=== PATIENT | male | born 1945 | race Caucasian/White ===

== ENCOUNTER → 2017-02-09 | Outpatient (CLI) | payer MEDICARE, OTHER ==
[~2017-02-09] MED LIST: AMIT50TA3; ASP81CT PO; ATOR40TA70 PO; CALC625T8 PO; CITA20TA7 PO; DCS100C PO; DULO60CA6; EZET10TA5 PO; FURO40TA4 PO; HYDR28CR10 TP; KETO200T; LISI-552 PO; METO5TAB2; METO5TAB79 PO; MILN50TA PO; MORP15TA4 PO; MORP30CA15 PO; MORP60TA52 PO; NAPR-243; NAPR500T72; NAPRO; NEBI5TAB8 PO; OXYB15TA PO; POTA10TA6 PO; POTASSIUM CHLORIDE; PRM25T; PRM25T PO; SIMV80TA3 PO; SNN187T PO; TRAZ-28 PO; WESTCORT; WHEA1POW PO
--- NOTE | 2017-02-09 13:56 | Diagnostic Imaging Report ---
INDICATION: Back pain. COMPARISON: Two-view chest x-ray of 07/13/2012. FINDINGS: The thoracic vertebral body statures are stable and are aligned within normal limits. No acute appearing endplate irregularity. There are poor inspiratory volumes and basilar atelectasis with suggestion of at least mild enlargement of the cardiac silhouette. IMPRESSION: No acute thoracic spinal abnormality is radiographically apparent. Dictated by: Dictated on workstation # [id number]
--- NOTE | 2017-02-09 14:03 | Diagnostic Imaging Report ---
INDICATION: Back pain, strain. COMPARISON: 02/10/2016. FINDINGS: The upper limits heart size is a stable finding. There is trace scarring in the lung bases, chronic. No evidence for pneumonia. No failure pattern, effusion, or pneumothorax. No gross overdistention of the vascularity. No free air beneath the diaphragms. No chest wall fracture deformity. IMPRESSION: Stable chronic findings. No acute feature or change from the prior exam. Dictated by: Dictated on workstation # [id number]
== END ==
LOC: RAD 11:40
DX: S23.3XXD Sprain of ligaments of thoracic spine, subsequent encounter (principal)
CPT/HCPCS: 71020; 72072

== ENCOUNTER → 2017-02-15 | Outpatient (CLI) | payer MEDICARE, OTHER ==
[~2017-02-15] MED LIST changes: +CATHETER FLUSH 10 ML SYR IV PRN; +IOHEXOL 350 MG/ML 100 ML (OMNIPAQUE 350) VIAL IV ONE; +NS 100 ML (IVPB) BAG IV ONE
--- NOTE | 2017-02-15 12:44 | Diagnostic Imaging Report ---
PROCEDURE: CT abdomen and pelvis with contrast. TECHNIQUE: Multiple contiguous axial images were obtained through the abdomen and pelvis after administration of intravenous contrast. INDICATION: Low back pain, bladder pain. COMPARISON: The previous CT abdomen/pelvis exam performed on 01/23/2012 noted that the gallbladder was distended and that there is a 1 cm gallstone within the neck of the gallbladder. FINDINGS: In the interval since the previous exam, the patient has undergone a cholecystectomy. The liver is homogeneous and not enlarged. There are a few calcifications within the spleen. 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 These were also present on the prior exam. The pancreas, adrenals, kidneys, aorta and inferior vena cava show no sign of an acute abnormality. The stomach is not well-distended and consequently difficult to assess. The appendix was visualized and is not abnormally thickened. There is no pelvic mass or free fluid collection noted. The prostate gland and urinary bladder are grossly unremarkable. Incidental note is made of a penile implant. There are extensive calcifications in the soft tissues posterior to each gluteus neno muscle. Most likely these are related to injection granulomas. The bone windows show no sign of a fracture or of a destructive lesion. The lungs are generally clear. IMPRESSION: In the interval since the prior study, the patient has undergone a cholecystectomy. The overall appearance of the abdomen and pelvis has not changed significantly otherwise. There is no acute abnormality identified. Dictated by: Dictated on workstation # [id number]
== END ==
LOC: RAD 11:42
DX: R10.9 Unspecified abdominal pain (principal)
CPT/HCPCS: 74177

== ENCOUNTER → 2017-08-02 | Outpatient (CLI) | payer MEDICARE, OTHER ==
[~2017-08-02] VITALS: Ht 170.2 cm; Wt 95.3 kg
[~2017-08-02] MED LIST changes: -IOHEXOL 350 MG/ML 100 ML (OMNIPAQUE 350) VIAL IV ONE; -NS 100 ML (IVPB) BAG IV ONE; +REGADENOSON 0.4 MG/5 ML SYR (LEXISCAN) IV ONE
[2017-08-02 09:33] VITALS: BP 137/89
[2017-08-02 09:35] VITALS: BP 147/86
[2017-08-02 09:37] VITALS: BP 165/101
--- NOTE | 2017-08-03 14:30 | STRESS TEST ---
DATE OF SERVICE: 08/02/2017 PROCEDURE: Resting and post-regadenoson technetium-99m tetrofosmin SPECT CT imaging. ORDERING PHYSICIAN: Rony Juarez APRN PRIMARY PHYSICIAN: Dr. Colunga. CLINICAL DIAGNOSIS: Chest pain. Baseline images were carried out after injection of 10.39 mCi technetium-99m tetrofosmin. This was followed by 0.4 mg regadenoson and 29.4 mCi technetium-99m Tetrofosmin for stress imaging. The electrocardiogram showed sinus rhythm at baseline and did not change significantly with the regadenoson infusion. The regadenoson infusion induced nausea and dry heaving, which resolved in a few minutes. Review of images at rest and following stress does not indicate significant perfusion defects consistent with any significant myocardial ischemia or infarction. Gated images show normal global left ventricular systolic function with normal regional wall motion. Left ventricular ejection fraction is calculated to be 79%. Left ventricular end-diastolic volume is 57 mL. TID is absent (1.1). CONCLUSIONS: 1. No evidence of any significant myocardial ischemia or infarction on this study. 2. Normal regional wall motion. 3. Normal global left ventricular systolic function with a calculated ejection fraction of 79%. Job ID: [id number] DocumentID: [id number] Dictated Date: 08/02/2017 15:55:30 [employer] Date: 08/03/2017 08:07:30 Dictated By: DOT PEREZ MD, MA, FACP, FACC,
== END ==
LOC: CARD 08:18
PROVIDERS: ATTEND Nurse Practitioner Family
DX: R07.89 Other chest pain (principal)
CPT/HCPCS: 78452; 93017

== ENCOUNTER → 2017-12-01 | Outpatient (CLI) | payer MEDICARE, OTHER ==
[~2017-12-01] MED LIST changes: -CATHETER FLUSH 10 ML SYR IV PRN; -REGADENOSON 0.4 MG/5 ML SYR (LEXISCAN) IV ONE
--- NOTE | 2017-12-01 09:17 | Diagnostic Imaging Report ---
EXAMINATION: DEXA study. INDICATION: Age-related osteoporosis FINDINGS: Bone mineral density of the lumbar spine, L2-L4 is 1.171 g/cm2 with a T-score of -0.6. This is in the NORMAL range. Bone mineral density of the left femur is 0.831 g/cm2 with a T-score of -1.9. This is in the OSTEOPENIA range. Bone mineral density of the right femur is 0.866 g/cm2 with a T-score of -1.6. This is in the OSTEOPENIA range. Total mean density of the hips is 0.849 g/cm2 with a T-score of -1.8. IMPRESSION: This scan is considered OSTEOPENIC according to the World Health Organization guidelines. Dictated by: Dictated on workstation # [id number]
== END ==
LOC: RAD 08:17
PROVIDERS: ATTEND Nurse Practitioner Family
DX: M85.88 Other specified disorders of bone density and structure, other site (principal)
CPT/HCPCS: 77080

== ENCOUNTER 2018-09-21 09:19 | Outpatient (CLI) | payer MEDICARE, OTHER ==
[~2018-09-21] VITALS: Ht 170.2 cm; Wt 94.3 kg
[~2018-09-21 09:19] MED LIST changes: -CITA20TA7 PO; +CITA20TA9 PO; +HYDR-3820 PO; +MORP100T37 PO; +PROM50TA3 PO; +PROP20TA5 PO; +ROSU20TA31 PO; +TIZA4TAB3 PO; +TRAZ-189 PO; -TRAZ-28 PO
[2018-09-21] MEDS ORDERED: ASPI-999 PO (15:11)
[2018-09-21] MEDS ORDERED: FURO40TA4 PO (15:11)
== END 2018-09-21 15:15 | disposition home or self-care (01) ==
LOC: PREOP 09:19
PROVIDERS: ATTEND Surgery
DX: Z01.818 Encounter for other preprocedural examination (principal)

== ENCOUNTER 2018-09-27 09:23 | Day surgery (SDC) | payer MEDICARE, OTHER ==
[~2018-09-27] VITALS: Ht 170.2 cm; Wt 94.3 kg
[~2018-09-27 09:23] MED LIST changes: +ASPI-999 PO
[2018-09-27] MEDS ORDERED: NS IV 500 ML 500 ML IV PRN (09:55)
[2018-09-27] MEDS ORDERED: HURRICAINE EXT TUBE (BENZOCAINE) XX PRN (10:00)
[2018-09-27] MEDS ORDERED: MIDAZOLAM 2 MG/2 ML (VERSED) VIAL IVP ONE (10:00)
[2018-09-27] MEDS ORDERED: NS IV 500 ML 500 ML ONE ×2 (10:00→13:18)
[2018-09-27] MEDS ORDERED: fentaNYL INJECTION 100 MCG/2 ML AMP IVP ONE (10:00)
[2018-09-27 10:30] VITALS: BP 161/72
[2018-09-27] MEDS ORDERED: LIDOCAINE PF 1% 5 ML (XYLOCAINE) AMP ONE (10:46)
[2018-09-27] MEDS ORDERED: MIDAZOLAM 2 MG/2 ML (VERSED) VIAL ONE ×6 (11:25→13:19)
[2018-09-27] MEDS ORDERED: LIDOCAINE JELLY 2% 6 ML SYRINGE ONE (11:25)
[2018-09-27] MEDS ORDERED: fentaNYL INJECTION 100 MCG/2 ML AMP ONE (11:25)
[2018-09-27] MEDS ORDERED: HURRICAINE EXT TUBE (BENZOCAINE) ONE (11:26)
--- OUTSIDE RECORDS SUMMARY | 2018-09-27 11:43 | XMS REPORT | Continuity of Care Document ---
Author Author [facility] Organization [facility] Address Unknown Phone Unavailable Allergies Active Description Code Type Severity Reaction Onset Reported/Identified Relationship to Patient Clinical Status Yes ketorolac [id number] Drug Allergy Mild N/A 09/21/2018 Yes minocycline [id number] Drug Allergy Unknown N/A 09/21/2018 Medications There is no data. Problems Date Dx Coded Attending Type Code Diagnosis Diagnosed By 11/03/2010 Ot 272.4 11/03/2010 Ot 276.8 11/03/2010 Ot 311 11/03/2010 Ot 356.9 11/03/2010 Ot 401.9 11/03/2010 Ot 496 11/03/2010 Ot 530.81 11/03/2010 Ot 564.89 11/03/2010 Ot 600.00 11/03/2010 Ot 715.90 11/03/2010 Ot 787.3 11/03/2010 Ot E937.9 01/26/2012 Ot 272.4 HYPERLIPIDEMIA NEC/NOS 01/26/2012 Ot 401.9 HYPERTENSION NOS 01/26/2012 Ot 496 CHR AIRWAY OBSTRUCT NEC 01/26/2012 Ot 530.81 ESOPHAGEAL REFLUX 01/26/2012 Ot 574.20 CHOLELITHIASIS NOS 01/26/2012 Ot 722.93 DISC DIS NEC /NOS-LUMBAR 01/26/2012 Ot 782.3 EDEMA 01/26/2012 Ot V15.82 HISTORY OF TOBACCO USE 04/29/2015 Ot 564.00 04/29/2015 Ot 789.00 04/29/2015 Ot 786.50 04/29/2015 Ot V58.69 04/29/2015 Ot 433.30 04/29/2015 Ot 433.10 04/29/2015 Ot 433.30 04/29/2015 Ot 786.05 04/29/2015 Ot 786.50 04/29/2015 RON DAY (STRATTON) Ot 436 04/29/2015 RON DAY ([place]) Ot 447.1 04/29/2015 XANDER LEONARDO, DANAE Barth Ot 786.05 05/12/2015 XANDER LEONARDO, DANAE Barth Ot 786.05 06/12/2015 MOHAMUD MCCULLOUGH SALVATIONIST Ot 786.50 02/10/2016 Ot 564.00 02/10/2016 Ot 789.00 02/10/2016 Ot 786.50 02/10/2016 Ot V58.69 02/10/2016 Ot 433.30 02/10/2016 Ot 433.10 02/10/2016 Ot 433.30 02/10/2016 Ot 786.05 02/10/2016 Ot 786.50 02/10/2016 SHAY (LEE), RON Teetee Ot 436 02/10/2016 SHAY (LEE), RON K Ot 447.1 02/10/2016 XANDER LEONARDO, DANAE Barth Ot 786.05 02/10/2016 MOHAMUD MCCULLOUGH SALVATIONIST Ot 786.50 02/10/2016 MOHAMUD MCCULLOUGH APRN Ot 786.50 02/11/2016 XANDER LEONARDO, DANAE Barth Ot M54.5 02/11/2016 XANDER LEONARDO, DANAE Barth Ot R05 02/18/2016 Ot M54.5 03/01/2016 XANDER LEONARDO, DANAE Barth Ot M54.2 CERVICALGIA 03/04/2016 XANDER LEONARDO, DANAE Barth Ot M54.5 LOW BACK PAIN 03/04/2016 XANDER LEONARDO, DANAE Barth Ot R05 COUGH 03/08/2016 JUSTICE SALCEDO DO Ot F11.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 DEPENDENCE WITH WITHDRAWAL 03/08/2016 JUSTICE SALCEDO DO Ot G89.29 OTHER CHRONIC PAIN 03/08/2016 JUSTICE SALCEDO DO Ot M54.5 LOW BACK PAIN 03/08/2016 JUSTICE SALCEDO DO Ot Z79.891 HALFWAY (CURRENT) USE OF OPIATE ANALGE 03/09/2016 Ot M54.5 LOW BACK PAIN 03/10/2016 JUSTICE SALCEDO DO Ot F11.23 OPIOID DEPENDENCE WITH WITHDRAWAL 03/10/2016 JUSTICE SALCEDO DO Ot G89.29 OTHER CHRONIC PAIN 03/10/2016 JUSTICE SALCEDO DO Ot M54.5 LOW BACK PAIN 03/10/2016 JUSTICE SALCEDO DO Ot Z79.891 TERMINAL MAKE UP OPERATOR (CURRENT) USE OF OPIATE ANALGE 04/01/2016 XANDER LEONARDO, DANAE Barth Ot M54.2 CERVICALGIA 08/26/2016 Ot 786.50 CHEST PAIN NOS 08/26/2016 Ot V58.69 OTH MED,LT, CURRENT USE 08/26/2016 Ot 433.30 MULT BILTRAL ARTERY OCCLUSION WO CEREBRA 08/26/2016 Ot 433.10 CAROTID ARTERY OCCLUSION W O CEREBRAL IN 08/26/2016 Ot 433.30 MULT BILTRAL ARTERY OCCLUSION WO CEREBRA 08/26/2016 Ot 786.05 SHORTNESS OF BREATH 08/26/2016 Ot 786.50 CHEST PAIN NOS 08/26/2016 SHAY (LEE)RON Ot 436 CVA 08/26/2016 SHAY (LEE)RON Ot 447.1 STRICTURE OF ARTERY 08/26/2016 DANAE TERRELL MD Ot 786.05 SHORTNESS OF BREATH 08/26/2016 MOHAMUD MCCULLOUGH SALVATIONIST Ot 786.50 CHEST PAIN NOS 08/26/2016 MOHAMUD MCCULLOUGH SALVATIONIST Ot 786.50 CHEST PAIN NOS 08/26/2016 Ot M54.5 LOW BACK PAIN 08/26/2016 DANAE TERRELL MD Ot M54.5 LOW BACK PAIN 08/26/2016 DANAE TERRELL MD Ot R05 COUGH 08/26/2016 SANTI LEONARDO, ROSEMARY Zelaya Ot M47.816 SPONDYLOSIS W/O MYELOPATHY OR RADICULOPA 08/26/2016 ROSEMARY HANCOCK MD Ot Z79.899 OTHER TERMINAL MAKE UP OPERATOR (CURRENT) DRUG THERAPY 08/30/2016 Ot 786.50 CHEST PAIN NOS 08/30/2016 Ot V58.69 OTH MED,LT, CURRENT USE 08/30/2016 Ot 433.30 MULT BILTRAL ARTERY OCCLUSION WO CEREBRA 08/30/2016 Ot 433.10 CAROTID ARTERY OCCLUSION W O CEREBRAL IN 08/30/2016 Ot 433.30 MULT BILTRAL ARTERY OCCLUSION WO CEREBRA 08/30/2016 Ot 786.05 SHORTNESS OF BREATH 08/30/2016 Ot 786.50 CHEST PAIN NOS 08/30/2016 SHAY (LEE)RON Ot 436 CVA 08/30/2016 SHAY (LEE)RON Ot 447.1 STRICTURE OF ARTERY 08/30/2016 DANAE TERRELL MD Ot 786.05 SHORTNESS OF BREATH 08/30/2016 MOHAMUD MCCULLOUGH SALVATIONIST Ot 786.50 CHEST PAIN NOS 08/30/2016 MOHAMUD MCCULLOUGH SALVATIONIST Ot 786.50 CHEST PAIN NOS 08/30/2016 Ot M54.5 LOW BACK PAIN 08/30/2016 DANAE TERRELL MD Ot M54.5 LOW BACK PAIN 08/30/2016 DANAE TERRELL MD Ot R05 COUGH 09/17/2016 Ot 786.50 CHEST PAIN NOS 09/17/2016 Ot V58.69 OTH MED,LT, CURRENT USE 09/17/2016 Ot 433.30 MULT BILTRAL ARTERY OCCLUSION WO CEREBRA 09/17/2016 Ot 433.10 CAROTID ARTERY OCCLUSION W O CEREBRAL IN 09/17/2016 Ot 433.30 MULT BILTRAL ARTERY OCCLUSION WO CEREBRA 09/17/2016 Ot 786.05 SHORTNESS OF BREATH 09/17/2016 Ot 786.50 CHEST PAIN NOS 09/17/2016 SHAY (LEE)RON Ot 436 CVA 09/17/2016 SHAY (LEE)RON Ot 447.1 STRICTURE OF ARTERY 09/17/2016 DANAE TERRELL MD Ot 786.05 SHORTNESS OF BREATH 09/17/2016 MOHAMUD MCCULLOUGH SALVATIONIST Ot 786.50 CHEST PAIN NOS 09/17/2016 MOHAMUD MCCULLOUGH SALVATIONIST Ot 786.50 CHEST PAIN NOS 09/17/2016 Ot M54.5 LOW BACK PAIN 09/17/2016 DANAE TERRELL MD Ot M54.5 LOW BACK PAIN 09/17/2016 DANAE TERRELL MD Ot R05 COUGH 09/17/2016 ROSEMARY HANCOCK MD Ot M47.816 SPONDYLOSIS W/O MYELOPATHY OR RADICULOPA 09/17/2016 ROSEMARY HANCOCK MD, Ot M47.816 SPONDYLOSIS W/O MYELOPATHY OR RADICULOPA 09/17/2016 ROSEMARY HANCOCK MD Ot Z79.899 OTHER TERMINAL MAKE UP OPERATOR (CURRENT) DRUG THERAPY 09/19/2016 ROSEMARY HANCOCK MD, Ot M47.816 SPONDYLOSIS W/O MYELOPATHY OR RADICULOPA 09/19/2016 ROSEMARY HANCOCK MD, Ot Z79.899 OTHER TERMINAL MAKE UP OPERATOR (CURRENT) DRUG THERAPY 09/28/2016 ROSEMARY HANCOCK MD, Ot M47.816 SPONDYLOSIS W/O MYELOPATHY OR RADICULOPA 10/04/2016 ROSEMARY HANCOCK MD Ot M47.816 SPONDYLOSIS W/O MYELOPATHY OR RADICULOPA 10/28/2016 ROSEMARY HANCOCK MD Ot M47.816 SPONDYLOSIS W/O MYELOPATHY OR RADICULOPA 10/28/2016 ROSEMARY HANCOCK MD Ot M54.5 LOW BACK PAIN 10/28/2016 ROSEMARY HANCOCK MD Ot M47.816 SPONDYLOSIS W/O MYELOPATHY OR RADICULOPA 11/22/2016 ROSEMARY HANCOCK MD Ot M47.816 SPONDYLOSIS W/O MYELOPATHY OR RADICULOPA 11/22/2016 ROSEMARY HANCOCK MD Ot M54.5 LOW BACK PAIN 02/09/2017 XANDER LEONARDO, DANAE Barth Ot S23.3XXD SPRAIN OF LIGAMENTS OF THORACIC SPINE, S 02/15/2017 XANDER LEONARDO, DANAE D Ot R10.9 UNSPECIFIED ABDOMINAL PAIN 02/16/2017 XANDER LEONARDO, DANAE D Ot R10.9 UNSPECIFIED ABDOMINAL PAIN 03/03/2017 XANDER LEONARDO, DANAE Barth Ot S23.3XXD SPRAIN OF LIGAMENTS OF THORACIC SPINE, S 03/21/2017 XANDER LEONARDO, DANAE Barth Ot R10.9 UNSPECIFIED ABDOMINAL PAIN 08/10/2017 MOHAMUD MCCULLOUGH SALVATIONIST Ot R07.89 OTHER CHEST PAIN 08/25/2017 MOHAMUD MCCULLOUGH SALVATIONIST Ot R07.89 OTHER CHEST PAIN 11/29/2017 MOHAMUD MCCULLOUGH SALVATIONIST Ot M81.0 AGE-RELATED 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 12/01/2017 MOHAMUD MCCULLOUGH SALVATIONIST Ot M81.0 AGE-RELATED 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 12/02/2017 MOHAMUD MCCULLOUGH SALVATIONIST Ot M85.88 OTH DISRD OF BONE DENSITY AND STRUCTURE, 12/23/2017 MOHAMUD MCCULLOUGH APRN Ot M85.88 OTH DISRD OF BONE DENSITY AND STRUCTURE, 01/22/2018 SALVATORE GILLIAM MD, Ot E66.9 OBESITY, UNSPECIFIED 01/22/2018 SALVATORE GILLIAM MD, Ot G89.29 OTHER CHRONIC PAIN 01/22/2018 SALVATORE GILLIAM MD, Ot I10 ESSENTIAL (PRIMARY) HYPERTENSION 01/22/2018 SALVATORE GILLIAM MD Ot I25.10 ATHSCL HEART DISEASE OF [place] CORONARY 01/22/2018 SALVATORE GILLIAM MD Ot I34.0 NONRHEUMATIC MITRAL (VALVE) INSUFFICIENC 01/22/2018 SALVATORE GILLIAM MD Ot I70.0 ATHEROSCLEROSIS OF [place] 01/22/2018 SALVATORE GILLIAM MD, Ot M54.5 LOW BACK PAIN 01/22/2018 SALVATORE GILLIAM MD Ot R63.4 ABNORMAL WEIGHT LOSS 01/22/2018 SALVATORE GILLIAM MD Ot Z68.33 BODY MASS INDEX (BMI) 33.0-33.9, ADULT 01/22/2018 SALVATORE GILLIAM MD Ot Z79.82 TERMINAL MAKE UP OPERATOR (CURRENT) USE OF ASPIRIN 01/22/2018 SALVATORE GILLIAM MD Ot Z79.899 OTHER TERMINAL MAKE UP OPERATOR (CURRENT) DRUG THERAPY 01/22/2018 SALVATORE GILLIAM MD Ot Z82.49 FAMILY HX OF ISCHEM HEART DIS AND OTH DI 01/22/2018 SALVATORE GILLIAM MD, Ot Z87.891 PERSONAL HISTORY OF NICOTINE DEPENDENCE 01/24/2018 SALVATORE GILLIAM MD Ot E66.9 OBESITY, UNSPECIFIED 01/24/2018 SALVATORE GILLIAM MD Ot G89.29 OTHER CHRONIC PAIN 01/24/2018 SALVATORE GILLIAM MD Ot I10 ESSENTIAL (PRIMARY) HYPERTENSION 01/24/2018 SALVATORE GILLIAM MD Ot I25.10 ATHSCL HEART DISEASE OF [place] CORONARY 01/24/2018 SALVATORE GILLIAM MD Ot I34.0 NONRHEUMATIC MITRAL (VALVE) INSUFFICIENC 01/24/2018 SALVATORE GILLIAM MD, Ot I70.0 ATHEROSCLEROSIS OF [place] 01/24/2018 SALVATORE GILLIAM MD Ot M54.5 LOW BACK PAIN 01/24/2018 SALVATORE GILLIAM MD Ot R63.4 ABNORMAL WEIGHT LOSS 01/24/2018 SALVATORE GILLIAM MD Ot Z68.33 BODY MASS INDEX (BMI) 33.0-33.9, ADULT 01/24/2018 SALVATORE GILLIAM MD Ot Z79.82 TERMINAL MAKE UP OPERATOR (CURRENT) USE OF ASPIRIN 01/24/2018 SALVATORE GILLIAM MD, Ot Z79.899 OTHER TERMINAL MAKE UP OPERATOR (CURRENT) DRUG THERAPY 01/24/2018 SALVATORE GILLIAM MD Ot Z82.49 FAMILY HX OF ISCHEM HEART DIS AND OTH DI 01/24/2018 SALVATORE GILLIAM MD, Ot Z87.891 PERSONAL HISTORY OF NICOTINE DEPENDENCE 02/09/2018 SALVATORE GILLIAM MD Ot E66.9 OBESITY, UNSPECIFIED 02/09/2018 SALVATORE GILLIAM MD Ot G89.29 OTHER CHRONIC PAIN 02/09/2018 SALVATORE GILLIAM MD Ot I10 ESSENTIAL (PRIMARY) HYPERTENSION 02/09/2018 SALVATORE GILLIAM MD, Ot I25.10 ATHSCL HEART DISEASE OF [place] CORONARY 02/09/2018 SALVATORE GILLIAM MD, Ot I34.0 NONRHEUMATIC MITRAL (VALVE) INSUFFICIENC 02/09/2018 SALVATORE GILLIAM MD Ot I70.0 ATHEROSCLEROSIS OF [place] 02/09/2018 SALVATORE GILLIAM MD Ot M54.5 LOW BACK PAIN 02/09/2018 SALVATORE GILLIAM MD, Ot R63.4 ABNORMAL WEIGHT LOSS 02/09/2018 SALVATORE GILLIAM MD Ot Z68.33 BODY MASS INDEX (BMI) 33.0-33.9, ADULT 02/09/2018 SALVATORE GILLIAM MD Ot Z79.82 TERMINAL MAKE UP OPERATOR (CURRENT) USE OF ASPIRIN 02/09/2018 SALVATORE GILLIAM MD, Ot Z79.899 OTHER HALFWAY (CURRENT) DRUG THERAPY 02/09/2018 SALVATORE GILLIAM MD, Ot Z82.49 FAMILY HX OF ISCHEM HEART DIS AND OTH DI 02/09/2018 SALVATORE GILLIAM MD, Ot Z87.891 PERSONAL HISTORY OF NICOTINE DEPENDENCE 09/25/2018 TAYLOR GREGORY MD Ot Z01.818 ENCOUNTER FOR OTHER PREPROCEDURAL EXAMIN Procedures Code Description Performed By Performed On 38.93 12/26/2009 45.16 12/26/2009 45.16 01/25/2012 51.23 01/25/2012 Results Test Result Range PT panel in platelet poor plasma by coagulation assay - 01/21/18 12:27 Prothrombin time (PT) in platelet poor plasma by coagulation assay 13.5 s 12.2-14.7 INR in platelet poor plasma or blood by coagulation assay 1.0 0.8-1.4 Activated partial thromboplastin time (aPTT) in platelet poor plasma bycoagulation assay - 01/21/18 12:27 Activated partial thromboplastin time (aPTT) in platelet poor plasma bycoagulation assay 29 s 24-35 Complete blood count (CBC) with automated white blood cell (WBC) differential - 01/21/18 12:27 Blood leukocytes automated count (number/volume) 6.7 10*3/uL 4.3-11.0 Blood erythrocytes automated count (number/volume) 4.88 10*6/uL 4.35-5.85 Venous blood hemoglobin measurement (mass/volume) 15.3 g/dL 13.3-17.7 Blood hematocrit (volume fraction) 42 % 40-54 Automated erythrocyte mean corpuscular volume 86 [foz_us] 80-99 Automated erythrocyte mean corpuscular hemoglobin (mass per erythrocyte) 31 pg 25-34 Automated erythrocyte mean corpuscular hemoglobin concentration measurement ( mass/volume) 36 g/dL 32-36 Automated erythrocyte distribution width ratio 14.0 % 10.0-14.5 Automated blood platelet count (count/volume) 258 10*3/uL 130-400 Automated blood platelet mean volume measurement 9.2 [foz_us] 7.4-10.4 Automated blood neutrophils/100 leukocytes 53 % 42-75 Automated blood lymphocytes/100 leukocytes 36 % 12-44 Blood monocytes/100 leukocytes 8 % 0-12 Automated blood eosinophils/100 leukocytes 3 % 0-10 Automated blood basophils/100 leukocytes 1 % 0-10 Blood neutrophils automated count (number/volume) 3.5 10*3 1.8-7.8 Blood lymphocytes automated count (number/volume) 2.4 10*3 1.0-4.0 Blood monocytes automated count (number/volume) 0.5 10*3 0.0-1.0 Automated eosinophil count 0.2 10*3/uL 0.0-0.3 Automated blood basophil count (count/volume) 0.0 10*3/uL 0.0-0.1 Comprehensive metabolic panel - 01/21/18 12:27 Serum or plasma sodium measurement (moles/volume) 139 mmol/L 135-145 Serum or plasma potassium measurement (moles/volume) 4.1 mmol/L 3.6-5.0 Serum or plasma chloride measurement (moles/volume) 103 mmol/L 98-107 Carbon dioxide 26 mmol/L 21-32 Serum or plasma anion gap determination (moles/volume) 10 mmol/L 5-14 Serum or plasma urea nitrogen measurement (mass/volume) 10 mg/dL 7-18 Serum or plasma creatinine measurement (mass/volume) 0.71 mg/dL 0.60-1.30 Serum or plasma urea nitrogen/creatinine mass ratio 14 NRG Serum or plasma creatinine measurement with calculation of estimated glomerular filtration rate > NRG Serum or plasma glucose measurement (mass/volume) 122 mg/dL 70-105 Serum or plasma calcium measurement (mass/volume) 9.5 mg/dL 8.5-10.1 Serum or plasma total bilirubin measurement (mass/volume) 1.7 mg/dL 0.1-1.0 Serum or plasma alkaline phosphatase measurement (enzymatic activity/volume) 50 U/L 40-136 Serum or plasma aspartate aminotransferase measurement (enzymatic activity/ volume) 20 U/L 5-34 Serum or plasma alanine aminotransferase measurement (enzymatic activity/volume ) 15 U/L 0-55 Serum or plasma protein measurement (mass/volume) 6.7 g/dL 6.4-8.2 Serum or plasma albumin measurement (mass/volume) 4.0 g/dL 3.2-4.5 Magnesium - 01/21/18 12:27 Magnesium 2.1 mg/dL 1.8-2.4 Serum or plasma creatine kinase measurement (enzymatic activity/volume) - 01/21 12:27 Serum or plasma creatine kinase measurement (enzymatic activity/volume) 53 U/L 30-200 Serum or plasma creatine kinase MB measurement (enzymatic activity/volume) - 12:27 Serum or plasma creatine kinase MB measurement (enzymatic activity/volume) 1.0 ng/mL <6.6 Serum or plasma troponin i.cardiac measurement (mass/volume) - 01/21/18 12:27 Serum or plasma troponin i.cardiac measurement (mass/volume) < ng/ mL <0.30 Serum or plasma lithium measurement (moles/volume) - 01/21/18 12:27 BNP level 396.0 pg/mL <100.0 Serum or plasma troponin i.cardiac measurement (mass/volume) - 01/21/18 22:05 Serum or plasma troponin i.cardiac measurement (mass/volume) < ng/ mL <0.30 Comprehensive metabolic panel - 01/22/18 03:43 Serum or plasma sodium measurement (moles/volume) 139 mmol/L 135-145 Serum or plasma potassium measurement (moles/volume) 3.7 mmol/L 3.6-5.0 Serum or plasma chloride measurement (moles/volume) 105 mmol/L 98-107 Carbon dioxide 26 mmol/L 21-32 Serum or plasma anion gap determination (moles/volume) 8 mmol/L 5-14 Serum or plasma urea nitrogen measurement (mass/volume) 10 mg/dL 7-18 Serum or plasma creatinine measurement (mass/volume) 0.63 mg/dL 0.60-1.30 Serum or plasma urea nitrogen/creatinine mass ratio 16 NRG Serum or plasma creatinine measurement with calculation of estimated glomerular filtration rate > NRG Serum or plasma glucose measurement (mass/volume) 97 mg/dL 70-105 Serum or plasma calcium measurement (mass/volume) 8.9 mg/dL 8.5-10.1 Serum or plasma total bilirubin measurement (mass/volume) 1.3 mg/dL 0.1-1.0 Serum or plasma alkaline phosphatase measurement (enzymatic activity/volume) 41 U/L 40-136 Serum or plasma aspartate aminotransferase measurement (enzymatic activity/ volume) 17 U/L 5-34 Serum or plasma alanine aminotransferase measurement (enzymatic activity/volume ) 15 U/L 0-55 Serum or plasma protein measurement (mass/volume) 5.6 g/dL 6.4-8.2 Serum or plasma albumin measurement (mass/volume) 3.4 g/dL 3.2-4.5 Serum or plasma troponin i.cardiac measurement (mass/volume) - 01/22/18 03:43 Serum or plasma troponin i.cardiac measurement (mass/volume) < ng/ mL <0.30 Lipid 1996 panel - 01/22/18 03:43 Serum or plasma triglyceride measurement (mass/volume) 92 mg/dL <150 Serum or plasma cholesterol measurement (mass/volume) 99 mg/dL < 200 Serum or plasma cholesterol in HDL measurement (mass/volume) 36 mg/ dL 40-60 Cholesterol in LDL [mass/volume] in serum or plasma by direct assay 48 mg/dL 1-129 Serum or plasma cholesterol in VLDL measurement (mass/volume) 18 mg/ dL 5-40 Complete blood count (CBC) with automated white blood cell (WBC) differential - 01/22/18 03:46 Blood leukocytes automated count (number/volume) 6.2 10*3/uL 4.3-11.0 Blood erythrocytes automated count (number/volume) 4.27 10*6/uL 4.35-5.85 Venous blood hemoglobin measurement (mass/volume) 13.5 g/dL 13.3-17.7 Blood hematocrit (volume fraction) 37 % 40-54 Automated erythrocyte mean corpuscular volume 87 [foz_us] 80-99 Automated erythrocyte mean corpuscular hemoglobin (mass per erythrocyte) 32 pg 25-34 Automated erythrocyte mean corpuscular hemoglobin concentration measurement ( mass/volume) 36 g/dL 32-36 Automated erythrocyte distribution width ratio 13.8 % 10.0-14.5 Automated blood platelet count (count/volume) 205 10*3/uL 130-400 Automated blood platelet mean volume measurement 9.3 [foz_us] 7.4-10.4 Automated blood neutrophils/100 leukocytes 41 % 42-75 Automated blood lymphocytes/100 leukocytes 45 % 12-44 Blood monocytes/100 leukocytes 11 % 0-12 Automated blood eosinophils/100 leukocytes 3 % 0-10 Automated blood basophils/100 leukocytes 1 % 0-10 Blood neutrophils automated count (number/volume) 2.6 10*3 1.8-7.8 Blood lymphocytes automated count (number/volume) 2.8 10*3 1.0-4.0 Blood monocytes automated count (number/volume) 0.7 10*3 0.0-1.0 Automated eosinophil count 0.2 10*3/uL 0.0-0.3 Automated blood basophil count (count/volume) 0.0 10*3/uL 0.0-0.1 Encounters ACCT No. Visit Date/Time Discharge Status Pt. Type Provider Facility Loc./Unit Complaint [id number] 09/21/2018 09:19:00 09/21/2018 15:15:00 DIS Outpatient TAYLOR GREGORY MD [facility] PREOP COLONOSCOPY/EGD [id number] 01/21/2018 14:40:00 01/22/2018 14:40:00 DIS Outpatient SALVATORE GILLIAM MD [facility] CATH CHEST PAIN [id number] 12/01/2017 08:17:00 12/01/2017 23:59:59 CLS Outpatient MOHAMUD MCCULLOUGH SALVATIONIST [facility] RAD M81.0 AGE-RELATED OSTEOPOROSIS [id number] 08/02/2017 08:18:00 08/02/2017 23:59:59 CLS Outpatient MOHAMUD MCCULLOUGH SALVATIONIST [facility] CARD CHEST PAIN [id number] 02/15/2017 11:42:00 02/15/2017 23:59:59 CLS Outpatient DANAE TERRELL MD [facility] RAD UNSPECIFIED ABD PAIN [id number] 02/09/2017 11:40:00 02/09/2017 23:59:59 CLS Outpatient DANAE TERRELL MD [facility] RAD THORACIC BACK SPRAIN [id number] 10/04/2016 12:07:00 10/04/2016 13:35:00 DIS Outpatient ROSEMARY HANCOCK MD [facility] CARD SPONDYLOSIS [id number] 09/27/2016 12:01:00 09/27/2016 23:59:59 CLS Outpatient ROSEMARY HANCOCK MD [facility] CARD SPONDYLOSIS [id number] 09/17/2016 08:42:00 09/17/2016 09:58:00 DIS Outpatient ROSEMARY HANCOCK MD [facility] CARD SPONDYLOSIS [id number] 08/26/2016 14:44:00 08/26/2016 16:28:00 DIS Outpatient ROSEMARY HANCOCK MD [facility] CARD SPONDYLOSIS [id number] 03/17/2016 08:54:00 04/01/2016 15:08:00 DIS Outpatient DANAE TERRELL MD [facility] REHAB LOW BACK PAIN [id number] 03/07/2016 21:59:00 03/08/2016 00:22:00 DIS Emergency JUSTICE SALCEDO DO [facility] ER WEAK, 152 HEART RATE [id number] 02/10/2016 12:36:00 02/10/2016 23:59:59 CLS Outpatient DANAE TERRELL MD [facility] RAD LOW BACK PAIN [id number] 05/22/2015 11:46:00 05/22/2015 23:59:59 CLS Outpatient MOHAMUD MCCULLOUGH SALVATIONIST [facility] CARD CP [id number] 05/15/2015 11:25:00 05/15/2015 23:59:59 CLS Outpatient MOHAMUD MCCULLOUGH SALVATIONIST [facility] CARD CP [id number] 04/21/2015 10:27:00 04/21/2015 23:59:59 CLS Outpatient XANDER LEONARDO, DANAE Barth [facility] RAD SOB,DYSPNEA [id number] 07/02/2014 09:38:00 07/02/2014 23:59:59 CLS Outpatient SHAY (LEE)RON [facility] RAD CEREBROVASCULAR DISEASE [id number] 09/27/2018 10:30:00 PEN Preadmit TAYLOR GREGORY MD [facility] ENDO SCREENING/HX POLYPS/REFLUX/ABD PAIN/N V [id number] 02/17/2016 14:08:00 Document Registration [id number] 04/29/2015 15:20:00 Document Registration [id number] 04/29/2015 15:20:00 Document Registration [id number] 04/29/2015 15:20:00 Document Registration [id number] 04/29/2015 15:20:00 Document Registration [id number] 04/29/2015 15:20:00 Document Registration [id number] 07/13/2012 09:10:00 Document Registration [id number] 06/28/2012 09:27:00 Document Registration [id number] 01/23/2012 06:58:00 Document Registration [id number] 06/30/2011 13:49:00 Document Registration [id number] 04/20/2011 11:51:00 Document Registration [id number] 10/29/2010 23:57:00 Document Registration [id number] 10/22/2010 14:19:00 Document Registration [id number] 05/22/2015 11:48:17 ACT Document Registration
--- NOTE | 2018-09-27 12:02 | Conscious Sedation/ASA ---
Conscious Sedation Pre-Proced Time 10:00 ASA Score 2 For ASA 3 and 4: Consider anesthesia and medical clearance. Also, for patients with a history of failed moderate sedation consider anesthesia. Airway Lungs Heart ASA score ASA 1: a normal healthy patient ASA 2: a patient with a mild systemic disease (mid diabetes, controlled hypertension, obesity ASA 3: a patient with a severe systemic disease that limits activity (angina , COPD, prior Myocardial infarction) ASA 4: a patient with an incapacitating disease that is a constant threat to life (CHF, renal failure) ASA 5: a moribund patient not expected to survive 24 hrs. (ruptured aneurysm) ASA 6: a declared brain patient whose organs are being harvested. For emergent operations, add the letter E after the classification Mallampati Classification Grade 2 Sedation Plan Analgesia, Amnesia, Plan communicated to team members, Discussed options with patient/fam, Discussed risks with patient/fam The patient is an appropriate candidate to undergo the planned procedure, sedation, and anesthesia. The patient immediately re-assessed prior to indication. TAYLOR GREGORY MD Sep 27, 2018 12:02 pm
--- NOTE | 2018-09-27 12:03 | Progress Note-Pre Operative ---
Pre-Operative Progress Note H&P Reviewed The H&P was reviewed, patient examined and no changes noted. Date Seen by Provider: Sep 27, 2018 Time Seen by Provider: 10:00 Date H&P Reviewed: Sep 27, 2018 Time H&P Reviewed: 10:00 Pre-Operative Diagnosis: GERD, family hx colon ca TAYLOR GREGORY MD Sep 27, 2018 12:03 pm
[2018-09-27] MEDS ORDERED: ACETAMINOPHEN 325 MG TABLET PO PRN (12:15)
[2018-09-27] MEDS ORDERED: ONDANSETRON 4 MG/2 ML (SDV) Z0FRAN IV PRN (12:15)
[2018-09-27] MEDS ORDERED: HYDROcodone/APAP 5 MG/325 MG (LORTAB) TAB PO PRN (12:15)
[2018-09-27] MEDS ORDERED: morphine INJ 10 MG/ML 1ML (SYR OR VIAL) IV PRN (12:15)
[2018-09-27 13:40] VITALS: BP 168/83
--- NOTE | 2018-09-27 13:49 | Progress Note-Post Operative ---
Post-Operative Progess Note Surgeon (s)/Corner Block Cutter (s) Surgeon TAYLOR GREGORY MD Corner Block Cutter: none Pre-Operative Diagnosis GERD, family hx colon ca Post-Operative Diagnosis reflux esophagitis(stage2), no recurrent HH, small antral ulcer. chronic stage 1 ext and int hemorrhoids. Procedure & Operative Findings Date of Procedure 09/27/18 Procedure Performed/Findings EGD with bx. Sigmoidoscopy. Anesthesia Type CS Estimated Blood Loss Estimated blood loss (mL): minimal Specimens/Packing Specimens Removed GE jxn, antrum TAYLOR GREGORY MD Sep 27, 2018 1:49 pm
[2018-09-27] MEDS ORDERED: SUCR1TAB36 PO (13:50)
--- NOTE | 2018-09-27 13:52 | Discharge Inst-Surgical ---
D/C Lap Instructions-KIDO New, Converted, or Re-Newed RX: RX on Chart will call for follow-up. will give patient option of barium enema vs. colonoscopy trial in 1 year. Activity as tolerated High Fiber Diet 25g or more per day Avoid Alcohol, Caffeine, Spicy Twodot and Acid foods. Drink 64 fluid oz or more of fluids per day. Symptoms to Report: Fever over 101 degree F, Nausea/Vomiting If any problems/questions: Contact your physician or go to Emergency Room TAYLOR GREGORY MD Sep 27, 2018 1:52 pm
[2018-09-27 14:20] VITALS: BP 144/78
[2018-09-27 14:40] VITALS: BP 144/78
--- NOTE | 2018-09-27 22:52 | OPERATIVE REPORT ---
DATE OF SERVICE: 09/27/2018 ATTENDING PRIMARY CARE PHYSICIAN: Dr. Gutierrez in [place], [place]. PREOPERATIVE DIAGNOSES: Gastroesophageal reflux disease, history of colon polyp, family history of colon cancer. POSTOPERATIVE DIAGNOSES: Reflux esophagitis between stage II, no recurrent hiatal hernia, small healing antral ulcer with an overlying fibrin clot. Chronic stage I external and internal hemorrhoids, long redundant colon. PROCEDURES: EGD with biopsy, sigmoidoscopy. SURGEON: Taylor Gregory MD ANESTHESIA: Conscious sedation. ESTIMATED BLOOD LOSS: Minimal. FINDINGS: EGD: Reflux esophagitis stage II, intact hiatal hernia repair and Monserrat fundoplication with no recurrent hiatal hernia. Moderate gastritis with a small antral ulcer along the lesser curvature approximately 0.5 cm in size with overlying fibrin clot, no active bleeding. Pylorus and duodenum appeared normal. No distal obstructions. Colonoscopy: Chronic stage I external and internal hemorrhoids. Long redundant colon. The cecum could not be intubated due to the redundancy in positioning of the colon and multiple attempts were made to access this region; however, we could not and we will offer him a barium enema versus a repeat try had a colonoscopy. INDICATIONS: The patient is a 73-year-old male with epigastric pain and nausea. He is also in need of a screening colonoscopy. He has a history of gastroesophageal reflux disease and underwent a hiatal hernia repair with Monserrat fundoplication in 1999. He is currently on Dexilant. His last colonoscopy in 2008 where a tubular adenoma was identified. He does have a family history of colon cancer with his mother having the disease being diagnosed at age 83. He does not report any red blood per rectum nor any dark tarry stools. DESCRIPTION OF PROCEDURE: The patient was brought to the endoscopy suite, laid in the left lateral decubitus position with head slightly elevated. After adequate IV pain and sedative medications and conscious sedation anesthesia, the mouthpiece was applied. The endoscope was placed in the mouth, visualizing the pharynx and hypopharyngeal region. Vocal cords, epiglottis and vallecula identified and appeared to be normal. The endoscope was then gently intubated at the esophageal opening and esophagus insufflated. Endoscope was then advanced through the first, second and third portion of the esophagus at the level of the GE junction, a reflux esophagitis stage II identified. There were no strictures or ulcerations identified. A biopsy was taken with forceps with visualization of good hemostasis. The endoscope was then advanced to the stomach and endoscope was then retroflexed visualizing intact wrap and no recurrent hiatal hernia. There was a moderate severity gastritis and there was also antral ulcer noted along the lesser curvature. This was small with an overlying fibrin clot and approximately 5 mm in size. A biopsy was taken of the ulcer using forceps with visualization of good hemostasis. The endoscope was then advanced to the pylorus and first and second portion of the duodenum, which appeared normal and no distal obstructions. A biopsy was also taken of the GE junction. The endoscope was then slowly withdrawn while taking a second look and suctioning of residual air with no additional findings. The patient tolerated the procedure well. We will await the biopsy results; however, it appears that he does have a gastric ulcer, most likely secondary to NSAID use and/or other medications. 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 basis. We will add Carafate 1 gram q.i.d. for the next 2 weeks, then on a p.r.n. basis. He will also be instructed to proceed with the necessary lifestyle and diet accommodation including small and more frequent meals, avoidance of eating at night as well as avoidance of caffeinated beverages, spicy, greasy and acidic foods. Under the same anesthesia, we then proceeded with the colonoscopy portion of procedure. A digital rectal examination was performed, which revealed mild chronic stage I external and internal hemorrhoids, not actively edematous or inflamed and no bleeding. Normal sphincter tone was felt and there were no palpable masses. The prostate gland was not palpable. The endoscope was then intubated to the anus and rectum gently insufflated. The endoscope was then advanced to the valves of Dickey of the rectum with no polyps or any neoplasms identified. The endoscope was then advanced to the sigmoid colon, where no diverticulosis identified. We then proceeded through the descending and transverse colon to the ascending colon. He has a very long and redundant M shaped colon and we could not intubate the cecum. Multiple attempts were tried of suctioning and with drawing and advancement as well as positioning of the patient; however, we could not intubate the cecum. At this time, we decided to not proceed with a full colonoscopy and either offer him a colonoscopy at another time versus a barium enema to evaluate the cecum of the colon. The patient tolerated the procedure well. We will recommend a high fiber diet with at least 30 grams of fiber per day as well as at least 64 fluid ounces of water to promote soft stools on a daily basis. Job ID: [id number] DocumentID: [id number] Dictated Date: 09/27/2018 13:49:19 Director Of Respiratory Therapy Date: 09/27/2018 22:52:19 Dictated By: TAYLOR GREGORY MD MTDD
== END 2018-09-27 14:40 | disposition home or self-care (01) ==
LOC: ENDO 09:23
PROVIDERS: ATTEND Surgery
DX: Z12.11 Encounter for screening for malignant neoplasm of colon (principal); K21.0 Gastro-esophageal reflux disease with esophagitis; K25.9 Gastric ulcer, unspecified as acute or chronic, without hemorrhage or perforation; K29.50 Unspecified chronic gastritis without bleeding; K64.0 First degree hemorrhoids; Z86.010 Personal history of colon polyps; Z80.0 Family history of malignant neoplasm of digestive organs; I10 Essential (primary) hypertension; E78.00 Pure hypercholesterolemia, unspecified; K59.00 Constipation, unspecified; Z79.82 Long term (current) use of aspirin; Z79.899 Other long term (current) drug therapy; Z87.891 Personal history of nicotine dependence; Z80.1 Family history of malignant neoplasm of trachea, bronchus and lung

== ENCOUNTER → 2019-08-06 | Outpatient (CLI) | payer MEDICARE, OTHER ==
[~2019-08-06] MED LIST changes: -ROSU20TA31 PO; +ROSU20TA32 PO; +SUCR1TAB36 PO; -TIZA4TAB3 PO; +TIZA4TAB4 PO; -TRAZ-189 PO; +TRAZ-222 PO
--- NOTE | 2019-08-06 09:21 | Diagnostic Imaging Report ---
INDICATION: Right-sided kidney stone. TIME OF EXAM: 8:40 AM FINDINGS: Renal shadows are obscured by overlying bowel. There is moderate gaseous distention to the colon. There is a large amount of fecal material in the right colon. No wall thickening or pneumatosis is seen. There are surgical clips in the right upper quadrant. No definite calculi along the expected course of the ureters is seen. IMPRESSION: Moderate gaseous distention to the colon, perhaps on the basis of ileus. Bowel gas does obscure the urinary tracts but no definite urinary tract calculi are seen. Dictated by: Dictated on workstation # [id number]
== END ==
LOC: RAD 08:15
PROVIDERS: ATTEND Nurse Practitioner Family
DX: K63.89 Other specified diseases of intestine (principal); N20.0 Calculus of kidney
CPT/HCPCS: 74018

== ENCOUNTER → 2020-06-17 | Outpatient (CLI) | payer MEDICARE, OTHER ==
[~2020-06-17] MED LIST changes: +ACHYD1T PO; +EZET10TA17 PO; -EZET10TA5 PO; -HYDR-3820 PO; -MORP100T37 PO; +MORP100T47 PO; -MORP60TA52 PO; +MORP60TA69 PO; -OXYB15TA PO; +OXYB15TA19 PO; +REGADENOSON 0.4 MG/5 ML SYR (LEXISCAN) IV ONE; -TRAZ-222 PO; +TRZ50T PO
[2020-06-17] MEDS: CATHETER FLUSH 10 ML SYR IV PRN ×2 (08:04→09:36)
[2020-06-17 09:35] VITALS: BP 192/99
--- NOTE | 2020-06-20 17:14 | STRESS TEST ---
DATE OF SERVICE: 06/17/2020 RESTING AND POST REGADENOSON TECHNETIUM-99M TETROFOSMIN SPECT CT IMAGING ORDERING PHYSICIAN: ORDERING PHYSICIAN: Janet Mcallister APRN PRIMARY PHYSICIAN: Dr. Colunga. OTHER PHYSICIAN: Dr. Perez. CLINICAL DIAGNOSES: Coronary artery disease. Baseline images were carried out after injection of 10.61 mCi of technetium-99m Tetrofosmin. This was followed by 0.4 mg regadenoson and 30.7 mCi of technetium-99m Tetrofosmin for stress imaging. The patient tolerated the procedure well. Review of images at rest and following stress does not indicate any distinct perfusion defects consistent with significant myocardial ischemia or infarction. Gated images show normal global left ventricular systolic function with normal regional wall motion. Left ventricular ejection fraction is calculated to be 69%. Left ventricular end diastolic volume is 68 mL. TID is absent (1.06). CONCLUSIONS: 1. No evidence of any significant myocardial ischemia or infarction on this study. 2. Normal regional wall motion. 3. Normal global left ventricular systolic function with a calculated ejection fraction of 59%. Job ID: [id number] DocumentID: [id number] Dictated Date: 06/20/2020 13:02:23 Supervisor Inspection Date: 06/20/2020 17:12:44 Dictated By: DOT PEREZ MD, MA, FACP, FACC,
== END ==
LOC: CARD 07:31
PROVIDERS: ATTEND Nurse Practitioner Family
DX: I25.10 Atherosclerotic heart disease of native coronary artery without angina pectoris (principal); I10 Essential (primary) hypertension; I65.29 Occlusion and stenosis of unspecified carotid artery; E66.9 Obesity, unspecified
CPT/HCPCS: 78452; 93017; A9502

== ENCOUNTER 2020-12-28 13:35 | Emergency (ER) | payer MEDICARE, OTHER ==
[~2020-12-28] VITALS: Ht 170 cm; Wt 108.0 kg
[~2020-12-28 13:35] MED LIST changes: -LISI-552 PO; +LISI20TA26 PO; -REGADENOSON 0.4 MG/5 ML SYR (LEXISCAN) IV ONE
[2020-12-28] MEDS ORDERED: fentaNYL INJECTION 100 MCG/2 ML AMP IVP ONE (14:15)
[2020-12-28 14:29] LABS: BASOPHILS # (AUTO) 0.1 10^3/uL (0.0-0.1); BASOPHILS % (AUTO) 1 % (0-10); EOSINOPHILS # (AUTO) 0.2 10^3/uL (0.0-0.3); EOSINOPHILS % (AUTO) 2 % (0-10); HEMATOCRIT 43 % (40-54); HEMOGLOBIN 14.5 g/dL (13.3-17.7); LYMPHOCYTES # (AUTO) 2.7 10^3/uL (1.0-4.0); LYMPHOCYTES % (AUTO) 34 % (12-44); MEAN CORPUSCULAR HEMOGLOBIN 31 pg (25-34); MEAN CORPUSCULAR HGB CONC 34 g/dL (32-36); MEAN CORPUSCULAR VOLUME 92 fL (80-99); MEAN PLATELET VOLUME 9.8 fL (9.0-12.2); MONOCYTES # (AUTO) 0.8 10^3/uL (0.0-1.0); MONOCYTES % (AUTO) 10 % (0-12); NEUTROPHILS # (AUTO) 4.2 10^3/uL (1.8-7.8); NEUTROPHILS % (AUTO) 53 % (42-75); PLATELET COUNT 223 10^3/uL (130-400); WHITE BLOOD COUNT 7.9 10^3/uL (4.3-11.0)
--- NOTE | 2020-12-28 14:30 | ED GI ---
General Chief Complaint: Abdominal/GI Problems Stated Complaint: R SIDE LOWER BACK PAIN Nursing Triage Note: PT AMB TO ROOM 7 PT CO OF ABD PAIN FOR APPROX 3 DAYS, PT HAS R SIDE, ABD FLANK PAIN, STATES HAS HAD NAUSEA. RATES PAIN 8/10. DENIES FEVER. NORMAL BM TODAY, DENIES DIFF W URINATION Sepsis Screen: No Definite Risk Source of Information: Patient Exam Limitations: No Limitations (JARRET LING) History of Present Illness Date Seen by Provider: Dec 28, 2020 Time Seen by Provider: 14:18 Initial Comments Amanda is a 75 y/o male that presents with right back pain that is 8/10 and sharp. He denies an exacerbating incident. Pain meds at home for chronic back pain have helped minimally. Associated with nausea without vomiting. The patient states "it is my right kidney". The patient denies having kidney issues in the past and denies hx of stones. He was treated at [facility] a couple of weeks ago for UTI. He states that this does not feel like a UTI. Denies the following: pressure in the kidney or relief with urination, dysuria, hematuria, incomplete emptying, weak stream, straining, constipation, SOB, cough, chest pain, LE weakness or pain. PMH includes chronic back pain and TURP. He cannot remember when his TURP was and does not follow with a urologist. Patient points to area of pain that correlates to lower thorax to upper abdomen. Timing/Duration: 1/2 Hour Severity/Quality: Moderate, Other (Right upper back/flank ) Radiation: No Radiation Activities at Onset: None Associated Symptoms: Nausea/Vomiting (without vomitting ) (JARRET LING) Allergies and Home Medications Allergies Coded Allergies: ketorolac (Unverified Allergy, Mild, 09/21/18) minocycline (Verified Allergy, Unknown, 09/21/18) Home Medications Aspirin 81 Mg Tab.chew, 81 MG PO DAILY, (Reported) Ezetimibe 10 Mg Tablet, 1 TAB PO DAILY, (Reported) Furosemide 40 Mg Tablet, 40 MG PO DAILY, (Reported) Hydrocodone Bit/Acetaminophen 1 Each Tablet, 1 EACH PO Q4H PRN for PAIN-MILD TO MODERATE, (Reported) Lisinopril 20 Mg Tablet, 1 TAB PO DAILY, (Reported) Morphine Sulfate 100 Mg Tablet.er, 100 MG PO Q8H, (Reported) Nebivolol HCl 5 Mg Tablet, 1 TAB PO DAILY, (Reported) Promethazine HCl 50 Mg Tablet, 50 MG PO Q6H PRN for NAUSEA/VOMITING-1ST LINE, (Reported) Rosuvastatin Calcium 20 Mg Tablet, 20 MG PO DAILY, (Reported) Sucralfate 1 Gm Tablet, 1 GM PO QID Prescribed by: TAYLOR BISHOP on 09/27/18 1350 Tizanidine HCl 4 Mg Tablet, 4 MG PO Q8H PRN for MUSCLE SPASMS, (Reported) Patient Home Medication List Home Medication List Reviewed: Yes (DEANGELO BHANDARI MD) Review of Systems Review of Systems Constitutional: no symptoms reported EENTM: No Symptoms Reported Respiratory: No Symptoms Reported Cardiovascular: No Symptoms Reported Gastrointestinal: No Symptoms Reported Genitourinary: No Symptoms Reported Musculoskeletal: back pain, other (Right side, deep in nature ) Skin: no symptoms reported Psychiatric/Neurological: No Symptoms Reported Hematologic/Lymphatic: No Symptoms Reported (ANURADHA,JARRET MED STUDEN) Past Lvskxpv-Rlodqa-Zqcvlx Hx Patient Social History Alcohol Use: Denies Use Smoking Status: Current Everyday Smoker Type Used: Cigars Former Smoker, Quit: Sep 21, 1997 Recent Infectious Disease Expo: No Recent Hopitalizations: Yes (JEAN UTI) (ANURADHA,JARRET MED STUDEN) Immunizations Up To Date Date of Pneumonia Vaccine: Sep 21, 2015 Date of Influenza Vaccine: Aug 21, 2018 (ANURADHA,JARRET MED STUDEN) Seasonal Allergies Seasonal Allergies: No (ANURADHA,JARRET MED STUDEN) Past Medical History Surgeries: Yes (PROSTATE, PENILE IMPLANT, LEFT TESTICLE REMOVAL, HERNIA) Abdominal, Amputation, Gallbladder, Orthopedic Respiratory: No Cardiac: Yes (CHF) High Cholesterol, Hypertension Neurological: No Reproductive Disorders: No Sexually Transmitted Disease: No HIV/AIDS: No Genitourinary: Yes Prostate Problems Gastrointestinal: Yes Abdominal Hernia, Chronic Constipation Musculoskeletal: Yes Chronic Back Pain Endocrine: No HEENT: No Cancer: No Psychosocial: No Integumentary: No Blood Disorders: No Adverse Reaction/Blood Tranf: No (ANURADHA,JARRET MED STUDEN) Family Medical History Heart Disease, Diabetes, Hypertension (ANURADHA,JARRET MED STUDEN) Physical Exam Vital Signs Vital Signs - First Documented 12/28/20 13:40 Temp 36.6 Pulse 75 Resp 18 B/P (MAP) 181/102 (128) Pulse Ox 97 (DEANGELO BHANDARI MD) Vital Signs Capillary Refill : Less Than 3 Seconds ([facility]) Height/Weight/BMI Height: 5'7.00" Weight: 208lbs. 0.0oz. [id number]; 37.00 BMI Method:Stated General Appearance: no apparent distress, obese HEENT: PERRL/EOMI Neck: non-tender, full range of motion Respiratory: chest non-tender, no respiratory distress, no accessory muscle use, other (basilar crackles BL ) Cardiovascular: normal peripheral pulses, regular rate, rhythm, no edema Peripheral Pulses: 2+ Dorsalis Pedis (R), 2+ Left Dors-Pedis (L), 2+ Radial Pulses (R), 2+ Radial Pulses (L) Gastrointestinal: non tender, distended Extremities: no pedal edema, no calf tenderness Back: no vertebral tenderness, other (CVA was (-) for Remedios sign. Pain was reproduced on deep palpation. ) Neurologic/Psychiatric: alert, oriented x 3 Skin: normal color, warm/dry Lymphatic: no adenopathy Exam Comments Abdomen was soft and non tender in all 4 quadrants. Pain reproduced with deep palpation in the flank of the upper abdomen/lower thorax. (-) Brendan rivera ([facility]) Progress/Results/Core Measures Results/Orders Lab Results Laboratory Tests Test 12/28/20 14:20 12/28/20 14:29 Range/Units White Blood Count 7.9 4.3-11.0 10^3/uL Red Blood Count 4.70 4.30-5.52 10^6/uL Hemoglobin 14.5 13.3-17.7 g/dL Hematocrit 43 40-54 % Mean Corpuscular Volume 92 80-99 fL Mean Corpuscular Hemoglobin 31 25-34 pg Mean Corpuscular Hemoglobin Concent 34 32-36 g/dL Red Cell Distribution Width 13.9 10.0-14.5 % Platelet Count 223 130-400 10^3/uL Mean Platelet Volume 9.8 9.0-12.2 fL Immature Granulocyte % (Auto) 0 % Neutrophils (%) (Auto) 53 42-75 % Lymphocytes (%) (Auto) 34 12-44 % Monocytes (%) (Auto) 10 0-12 % Eosinophils (%) (Auto) 2 0-10 % Basophils (%) (Auto) 1 0-10 % Neutrophils # (Auto) 4.2 1.8-7.8 10^3/uL Lymphocytes # (Auto) 2.7 1.0-4.0 10^3/uL Monocytes # (Auto) 0.8 0.0-1.0 10^3/uL Eosinophils # (Auto) 0.2 0.0-0.3 10^3/uL Basophils # (Auto) 0.1 0.0-0.1 10^3/uL Immature Granulocyte # (Auto) 0.0 0.0-0.1 10^3/uL Sodium Level 139 135-145 MMOL/L Potassium Level 4.1 3.6-5.0 MMOL/L Chloride Level 103 98-107 MMOL/L Carbon Dioxide Level 24 21-32 MMOL/L Anion Gap 12 5-14 MMOL/L Blood Urea Nitrogen 10 7-18 MG/DL Creatinine 0.69 0.60-1.30 MG/DL Estimat Glomerular Filtration Rate > 60 BUN/Creatinine Ratio 14 Glucose Level 112 H 70-105 MG/DL Calcium Level 8.8 8.5-10.1 MG/DL Corrected Calcium 8.9 8.5-10.1 MG/DL Total Bilirubin 0.6 0.1-1.0 MG/DL Aspartate Amino Transf (AST/SGOT) 16 5-34 U/L Alanine Aminotransferase (ALT/SGPT) 19 0-55 U/L Alkaline Phosphatase 55 40-136 U/L C-Reactive Protein High Sensitivity 0.19 0.00-0.50 MG/DL Total Protein 6.8 6.4-8.2 GM/DL Albumin 3.9 3.2-4.5 GM/DL Urine Color YELLOW Urine Clarity SL CLOUDY Urine pH 5.5 5-9 Urine Specific Edgar 1.025 H 1.016-1.022 Urine Protein NEGATIVE NEGATIVE Urine Glucose (UA) NEGATIVE NEGATIVE Urine Ketones NEGATIVE NEGATIVE Urine Nitrite NEGATIVE NEGATIVE Urine Bilirubin NEGATIVE NEGATIVE Urine Urobilinogen 1.0 < = 1.0 MG/DL Urine Leukocyte Esterase NEGATIVE NEGATIVE Urine RBC (Auto) NEGATIVE NEGATIVE Urine RBC NONE /HPF Urine WBC 0-2 /HPF Urine Squamous Epithelial Cells 2-5 /HPF Urine Crystals NONE /LPF Urine Bacteria NEGATIVE /HPF Urine Casts NONE /LPF Urine Mucus NEGATIVE /LPF Urine Culture Indicated NO (DEANGELO BHANDARI MD) My Orders Orders - DEANGELO BHANDARI MD Ua Culture If Indicated (12/28/20 14:07) Cbc With Automated Diff (12/28/20 14:13) Comprehensive Metabolic Panel (12/28/20 14:13) Hs C Reactive Protein (12/28/20 14:13) Ed Iv/Invasive Line Start (12/28/20 14:13) Chest Pa/Lat (2 View) (12/28/20 14:13) Fentanyl Injection (Sublimaze Injection (12/28/20 14:15) Ketorolac Injection (Toradol Injection) (12/28/20 15:15) Ketorolac Injection (Toradol Injection) (12/28/20 15:08) Iohexol Injection (Omnipaque 350 Mg/Ml 1 (12/28/20 15:45) Received Contrast (Hold Metformin- Contr (12/28/20 15:45) Sodium Chloride Flush (Catheter Flush Sy (12/28/20 15:45) Ns (Ivpb) (Sodium Chloride 0.9% Ivpb Bag (12/28/20 15:45) Ct Abdomen/Pelvis W (12/28/20 15:36) (DEANGELO BHANDARI MD) Medications Given in ED (DEANGELO BHANDARI MD) Vital Signs/I&O 12/28/20 12/28/20 13:40 17:09 Temp 36.6 Pulse 75 75 Resp 18 18 B/P (MAP) 181/102 (128) 185/101 Pulse Ox 97 97 (DEANGELO BHANDARI MD) Blood Pressure Mean: 128 Progress Progress Note #1: Time: 14:37 Progress Note Due to patients pain being lower thorax/upper abdomen and BL basilar crackles we suggested Chest x-ray to start. In addition to X-ray we will obtain CBC with diff, CMP and UA. The patient was in agreement with plan. Pending results will dictate further workup. Progress Note #2: Time: 15:00 Progress Note CBC, CMP and UA showed no abnormalities, Chest xray showed no chest pathology. Spoke to patient about CT and the risk, benefits and alternatives of this in order to rule out abdomen surgical pathology. He is indifferent. We agreed on giving him toradol for pain and taking bp again due to its elevation and reevaluating his pain and decision on CT of the abdomen/pelvis. (JARRET LING) Progress Note #1: Time: 15:39 Progress Note Patient has been seen and evaluated by me personally. He has been examined and reexamined. He seems to have an area of tenderness a few square centimeters in area at the posterior portion of the right lateral costal margin. This does not appear to extend into the soft portions of the abdomen. This did improve a little bit with fentanyl and a little bit more with Toradol. Chest x-ray was r ead as normal. There seemed to be some gaseous distention of the bowel on the x-ray. I have discussed the potential for further imaging studies with the patient, specifically CT of the abdomen and pelvis. We discussed risks and benefits. He elects to proceed with the CT. Progress Note #2: Progress Note CT did not reveal any cause for the right costal margin pain. There is no rash to suggest shingles. Suspect this is a musculoskeletal pain. CT did however demonstrate an area of stricture in the descending colon as well as a tortuous colon with gaseous distention. I discussed the case with Dr. Bishop who has previously performed colonoscopy on this patient. He recommended follow-up on Tuesday with colonoscopy to follow. Patient expressed understanding. See discharge instructions. We also addressed patient's hypertension. He does have clonidine at home he is supposed to take as needed for exacerbations. He has not taken this in a while. Instructed him to take 1 when he returns home and monitor his blood pressure closely. (DEANGELO BHANDARI MD) Diagnostic Imaging Diagonstic Imaging: Xray Plain Films/CT/US/NM/MRI: chest Comments Chest x-ray viewed by me and report reviewed. See report below: NAME: AMANDA [facility]ALL [facility] REC#: [id number] PT STATUS: REG ER : 1945 PHYSICIAN: DEANGELO BHANDARI MD ADMIT DATE: 12/28/20/ER Signed Date of Exam:12/28/20 CHEST PA/LAT (2 VIEW) EXAMINATION: Chest 2 view HISTORY: Chest wall pain COMPARISON: Chest radiograph 01/21/2018 FINDINGS: Heart size and pulmonary vasculature are stable. Stable low lung volumes without consolidation, pleural effusion, or pneumothorax. Linear streaky opacities in the right midlung, likely atelectasis or scarring. The osseous structures are intact. IMPRESSION: 1. No acute radiographic abnormality in the chest. Dictated by: Dictated on workstation # [id number] Dict: 12/28/20 1440 Trans: 12/28/20 1445 CV [id number] Interpreted by: CUAUHTEMOC SALVADOR DO Electronically signed by: CUAUHTEMOC SALVADOR DO 12/28/20 144 (DEANGELO BHANDARI MD) Departure Impression Primary Impression: Chest wall pain Additional Impressions: Abnormal CT of the abdomen Hypertension Qualified Codes: I10 - Essential (primary) hypertension Tortuous colon Disposition: HOME, SELF-CARE Condition: Improved Departure-Patient Inst. Decision time for Depature: 17:13 (DEANGELO BHANDARI MD) Referrals: DANAE TERRELL MD (PCP/Family) Primary Care Physician Patient Instructions: High Blood Pressure in Adults Add. Discharge Instructions: 1. You had an abnormal finding of a stricture in your colon on the CT scan. Please contact Dr. Bishop tomorrow morning for follow-up appointment. He will discuss repeating a colonoscopy to evaluate this further. 2. You have a tortuous colon which may make it difficult for you to pass gas and stool. Drink plenty of water and eat a high-fiber diet. Avoid eating excessively large amounts of food. 3. The pain on your right flank is probably due to musculoskeletal pain around the ribs. You may take Tylenol (acetaminophen) up to 1000 mg every 6 hours as needed and/or ibuprofen up to 600 mg every 6 hours as needed. Follow-up with your primary care provider regarding this pain if it does not resolve in the next couple of days. 4. High blood pressure -Your blood pressure is not well controlled today. Please return home and take your clonidine as prescribed. Monitor your blood pressure closely. Please call Dr. Terrell tomorrow morning to arrange an appointment for this week to have your blood pressure checked and managed. 5. Call with questions or concerns. Return to the ER if you have worsening sy mptoms. All discharge instructions reviewed with patient and/or family. Voiced understanding. Copy Copies To 1: DANAE TERRELL MD Copies To 2: TAYLOR BISHOP MD, [facility] Dec 28, 2020 14:30 DEANGELO BHANDARI MD Dec 28, 2020 15:41
[2020-12-28 14:34] LABS: BILIRUBIN,URINE NEGATIVE (NEGATIVE); CLARITY,URINE SL CLOUDY; COLOR,URINE YELLOW; GLUCOSE, URINE (UA) NEGATIVE (NEGATIVE); KETONES,URINE NEGATIVE (NEGATIVE); LEUKOCYTE ESTERASE ,URINE NEGATIVE (NEGATIVE); NITRITE,URINE NEGATIVE (NEGATIVE); PH,URINE 5.5 (5-9); PROTEIN,URINE NEGATIVE (NEGATIVE)
[2020-12-28 14:39] LABS: BACTERIA,URINE NEGATIVE /HPF; WBC,URINE 0-2 /HPF
--- NOTE | 2020-12-28 14:44 | Diagnostic Imaging Report ---
EXAMINATION: Chest 2 view HISTORY: Chest wall pain COMPARISON: Chest radiograph 01/21/2018 FINDINGS: Heart size and pulmonary vasculature are stable. Stable low lung volumes without consolidation, pleural effusion, or pneumothorax. Linear streaky opacities in the right midlung, likely atelectasis or scarring. The osseous structures are intact. IMPRESSION: 1. No acute radiographic abnormality in the chest. Dictated by: Dictated on workstation # [id number]
[2020-12-28 14:46] LABS: ALBUMIN 3.9 GM/DL (3.2-4.5); CHLORIDE 103 MMOL/L (98-107); POTASSIUM 4.1 MMOL/L (3.6-5.0); SODIUM 139 MMOL/L (135-145)
[2020-12-28 14:47] LABS: CALCIUM 8.8 MG/DL (8.5-10.1)
[2020-12-28 14:49] LABS: GLUCOSE 112 MG/DL (70-105); TOTAL PROTEIN 6.8 GM/DL (6.4-8.2)
[2020-12-28 14:50] LABS: BILIRUBIN,TOTAL 0.6 MG/DL (0.1-1.0); CARBON DIOXIDE 24 MMOL/L (21-32)
[2020-12-28 14:52] LABS: ALKALINE PHOSPHATASE 55 U/L (40-136); CREATININE SERUM 0.69 MG/DL (0.60-1.30); GFR ESTIMATED > 60
[2020-12-28 14:53] LABS: BUN/CREATININE RATIO 14
[2020-12-28 14:55] LABS: ALANINE AMINOTRANSFERASE 19 U/L (0-55)
[2020-12-28] MEDS ORDERED: KETOROLAC 30 MG/ML VIAL ONE (15:08)
[2020-12-28] MEDS ORDERED: KETOROLAC 30 MG/ML VIAL IVP ONE (15:15)
[2020-12-28] MEDS ORDERED: IOHEXOL 350 MG/ML 100 ML (OMNIPAQUE 350) VIAL IV ONE (15:45)
[2020-12-28] MEDS ORDERED: HOLD METFORMIN - RECEIVED CONTRAST 20 ML VIAL IV SCH (15:45)
[2020-12-28] MEDS ORDERED: NS 100 ML (IVPB) BAG IV ONE (15:45)
[2020-12-28] MEDS ORDERED: CATHETER FLUSH 10 ML SYR IV PRN (15:45)
--- NOTE | 2020-12-28 16:39 | Diagnostic Imaging Report ---
PROCEDURE: CT abdomen and pelvis with contrast. TECHNIQUE: Multiple contiguous axial images were obtained through the abdomen and pelvis after administration of intravenous contrast. Auto Exposure Controls were utilized during the CT exam to meet ALARA standards for radiation dose reduction. All CT scans use one or more of the following dose optimizing techniques: automated exposure control, MA and/or KvP adjustment based on patient size and exam type or iterative reconstruction. INDICATION: Right lateral costal margin pain, nausea. CORRELATION STUDY: 02/15/2017. FINDINGS: LOWER THORAX: Heart size borderline enlarged. Lung knapp are relatively clear. Gastroesophageal junction unremarkable. LIVER: Unremarkable. GALLBLADDER: Cholecystectomy. No significant bile ductal dilatation. SPLEEN: A few calcified granulomas, otherwise unremarkable. PANCREAS: Mildly atrophic. ADRENAL GLANDS: Unremarkable. KIDNEYS: Probable small cortical cyst left kidney. No hydronephrosis. ABDOMINAL AORTA: Mild/moderate wall calcification including origin of the major branches. No aneurysm. GASTROINTESTINAL TRACT: Stomach is relatively collapsed. No small bowel distention. There is rather pronounced distention of the colon, particularly the distal descending and proximal colon which is rather tortuous. Additionally, there is questionable thickening about the distal transverse colon for which a small annular lesion is not excluded. URINARY BLADDER: Unremarkable. REPRODUCTIVE: Prostate gland is small and not visualized. OSSEOUS STRUCTURES: Negative for acute findings. OTHER: Multiple calcifications in the gluteal region likely injection granulomas. A marker is placed at the area of pain. Deep to this is the approximately T10-T11 intercostal space. Deeper to this is the inferior right hepatic lobe. Musculature wall slightly prominent contour but otherwise unremarkable. IMPRESSION: 1. No acute abnormality to correspond to the areas of region of pain of the right flank. 2. There is noted rather significant distention of the distal descending and sigmoid colon which is fairly tortuous. However, no definitive obstructing or rotating process demonstrated. 3. Very questionable annular type contour about the distal transverse colon. If not recently performed, consideration for colon cancer screening would be recommended. Dictated by: Dictated on workstation # [id number]
[2020-12-28 17:09] VITALS: BP 185/101
== END 2020-12-28 17:23 | disposition home or self-care (01) ==
LOC: EDUNIT# 13:35 → ER 13:36
DX: R07.89 Other chest pain (principal); R93.5 Abnormal findings on diagnostic imaging of other abdominal regions, including retroperitoneum; I10 Essential (primary) hypertension; Q43.8 Other specified congenital malformations of intestine; E66.9 Obesity, unspecified; E78.00 Pure hypercholesterolemia, unspecified; G89.29 Other chronic pain; Z68.37 Body mass index [BMI] 37.0-37.9, adult; M54.9 Dorsalgia, unspecified; F17.290 Nicotine dependence, other tobacco product, uncomplicated; Z88.6 Allergy status to analgesic agent; Z88.1 Allergy status to other antibiotic agents; Z82.49 Family history of ischemic heart disease and other diseases of the circulatory system; Z83.3 Family history of diabetes mellitus; Z79.82 Long term (current) use of aspirin; Z79.891 Long term (current) use of opiate analgesic
CPT/HCPCS: 36415; 71046; 74177; 80053; 81000; 85025; 86141

== ENCOUNTER → 2021-01-05 | Outpatient (CLI) | payer MEDICARE, OTHER ==
--- NOTE | 2021-01-05 11:45 | Diagnostic Imaging Report ---
HISTORY: Right flank pain. Hematuria. COMPARISON: 08/06/2019 TECHNIQUE: Frontal view of the abdomen. FINDINGS: There are mildly prominent loops of large and small bowel. No renal calculi are identified. There are calcifications in the gluteal soft tissues bilaterally, likely from old injection granulomas. Cholecystectomy clips are noted. IMPRESSION: 1. No renal calculi are seen radiographically. 2. Mildly prominent loops of large and small bowel, may be due to ileus. Dictated by: Dictated on workstation # [id number]
--- NOTE | 2021-01-05 11:45 | Diagnostic Imaging Report ---
PROCEDURE: CT urinary tract, rule out kidney stone. TECHNIQUE: Multiple contiguous axial images were obtained through the abdomen and pelvis without the use of intravenous contrast. Auto Exposure Controls were utilized during the CT exam to meet ALARA standards for radiation dose reduction. INDICATION: Right flank pain for three weeks and hematuria. COMPARISON: Correlation is made with prior CT from 12/28/2020. FINDINGS: The lung bases are clear. Liver is unremarkable. Gallbladder appears to be surgically absent. Pancreas and spleen are unremarkable. No adrenal mass is identified. No definite renal calculi are detected. No ureteral calculi or hydronephrosis are identified. No bladder calculi are detected. Aorta is heavily calcified but nonaneurysmal. There continues to be some gaseous distention to portions of the colon, primarily the transverse colon. No definite wall thickening is seen. Small bowel is nondistended. There is no free fluid in the abdomen or pelvis. There is no fluid collection. Appendix is visualized and unremarkable. The bony structures appear nonacute. IMPRESSION: 1. No evidence of urinary tract calculi or obstruction. 2. No CT evidence of acute appendicitis. 3. No acute feature detected. Dictated by: Dictated on workstation # [id number]
== END ==
LOC: RAD 11:02
PROVIDERS: ATTEND Urology
DX: R10.9 Unspecified abdominal pain (principal); R31.9 Hematuria, unspecified
CPT/HCPCS: 74018; 74176

== ENCOUNTER 2021-01-12 05:30 | Outpatient (RCR) | payer MEDICARE, OTHER ==
[~2021-01-12] VITALS: Ht 170 cm; Wt 109.0 kg
== END 2021-01-12 10:56 | disposition home or self-care (01) ==
LOC: PREOP 05:30
PROVIDERS: ATTEND Surgery
DX: Z01.812 Encounter for preprocedural laboratory examination (principal); Z12.11 Encounter for screening for malignant neoplasm of colon; Z20.822 Contact with and (suspected) exposure to COVID-19
CPT/HCPCS: 87635

== ENCOUNTER 2021-01-14 13:15 | Day surgery (SDC) | payer MEDICARE, OTHER ==
[~2021-01-14] VITALS: Ht 170 cm; Wt 109.0 kg
[2021-01-14] MEDS ORDERED: LACTATED RINGERS 1,000 ML IV STA (13:18)
[2021-01-14] MEDS ORDERED: LACTATED RINGERS 1,000 ML IV ONE (13:19)
[2021-01-14] MEDS ORDERED: LIDOCAINE JELLY 2% 6 ML SYRINGE MM PRN (13:30)
[2021-01-14 13:52] VITALS: BP 180/106
--- NOTE | 2021-01-14 14:47 | Conscious Sedation/ASA ---
Conscious Sedation Pre-Proced Time 14:30 ASA Score 2 For ASA 3 and 4: Consider anesthesia and medical clearance. Also, for patients with a history of failed moderate sedation consider anesthesia. Airway Lungs Heart ASA score ASA 1: a normal healthy patient ASA 2: a patient with a mild systemic disease (mid diabetes, controlled hypertension, obesity ASA 3: a patient with a severe systemic disease that limits activity (angina, COPD, prior Myocardial infarction) ASA 4: a patient with an incapacitating disease that is a constant threat to life (CHF, renal failure) ASA 5: a moribund patient not expected to survive 24 hrs. (ruptured aneurysm) ASA 6: a declared brain- patient whose organs are being harvested. For emergent operations, add the letter E after the classification Mallampati Classification Grade 2 Sedation Plan Analgesia, Amnesia, Plan communicated to team members, Discussed options with patient/fam, Discussed risks with patient/fam The patient is an appropriate candidate to undergo the planned procedure, sedation, and anesthesia. The patient immediately re-assessed prior to indication. TAYLOR GREGORY MD Jan 14, 2021 14:47
--- NOTE | 2021-01-14 14:48 | Progress Note-Pre Operative ---
Pre-Operative Progress Note H&P Reviewed The H&P was reviewed, patient examined and no changes noted. Date Seen by Provider: Jan 14, 2021 Time Seen by Provider: 14:30 Date H&P Reviewed: Jan 14, 2021 Time H&P Reviewed: 14:30 Pre-Operative Diagnosis: family hx colon ca/screening TAYLOR GREGORY MD Jan 14, 2021 14:48
--- NOTE | 2021-01-14 14:49 | Discharge Inst-Surgical ---
D/C Lap Instructions-COLT Follow Up Activity as tolerated High Fiber Diet 25g or more per day Avoid Alcohol, Caffeine, Spicy [place] and Acid foods. Drink 64 fluid oz or more of fluids per day. Symptoms to Report: Fever over 101 degree F, Nausea/Vomiting If any problems/questions: Contact your physician or go to Emergency Room TAYLOR GREGORY MD Jan 14, 2021 14:49
[2021-01-14] MEDS ORDERED: HYDROcodone/APAP 5 MG/325 MG (LORTAB) TAB PO PRN (15:00)
[2021-01-14] MEDS ORDERED: ACETAMINOPHEN 325 MG TABLET PO PRN (15:00)
[2021-01-14] MEDS ORDERED: morphine INJ 10 MG/ML 1ML (SYR OR VIAL) IVP PRN ×2 (15:00)
[2021-01-14] MEDS ORDERED: ONDANSETRON 4 MG/2 ML (SDV) Z0FRAN IVP PRN (15:00)
[2021-01-14] MEDS ORDERED: PROPOFOL INJECTION 50 ML IV ONE (15:02)
[2021-01-14] MEDS ORDERED: LIDOCAINE JELLY 2% 6 ML SYRINGE ONE (15:08)
[2021-01-14] MEDS ORDERED: proPOfol 200 MG/20 ML (DIPRIVAN) VIAL IV ONE (15:30)
[2021-01-14 15:40] VITALS: BP 102/51
[2021-01-14 15:45] VITALS: BP_SYST 106; BP_SYST 114; BP_DIAS 51; BP_DIAS 55
[2021-01-14 16:07] VITALS: BP 162/85
[2021-01-14 16:08] VITALS: BP 162/85
--- NOTE | 2021-01-14 17:16 | Progress Note-Post Operative ---
Post-Operative Progess Note Surgeon (s)/Radio Assembler (s) Surgeon TAYLOR GREGORY MD Radio Assembler: none Pre-Operative Diagnosis family hx colon ca/screening Post-Operative Diagnosis mild chronic stage 2 ext and int hemorrhoids, mild-mod sigmoid diverticulosis. small asc colon polyp(2mm) Procedure & Operative Findings Date of Procedure 01/14/21 Procedure Performed/Findings colonoscopy with polypectomy Anesthesia Type mac Estimated Blood Loss Estimated blood loss (mL): minimal Specimens/Packing Specimens Removed asc colon polyp TAYLOR GREGORY MD Jan 14, 2021 17:16
--- NOTE | 2021-01-14 19:02 | Anesthesia-General Post-Op ---
MAC Patient Condition Mental Status/LOC: Same as Preop Cardiovascular: Satisfactory Nausea/Vomiting: Absent Respiratory: Satisfactory Pain: Controlled Complications: Absent Post Op Complications Complications None Follow Up Care/Instructions Patient Instructions None needed. Anesthesiology Discharge Order Discharge Order Patient is doing well, no complaints, stable vital signs, no apparent adverse anesthesia problems. No complications reported per nursing. JAMES MEEK CRNA Jan 14, 2021 19:02
--- NOTE | 2021-01-14 20:34 | OPERATIVE REPORT ---
DATE OF SERVICE: 01/14/2021 ATTENDING PRIMARY CARE PHYSICIAN: Rai Colunga MD PREOPERATIVE DIAGNOSIS: Screening colonoscopy. POSTOPERATIVE DIAGNOSES: Mild chronic stage II external and internal hemorrhoids, redundant colon, no polyps or any neoplasms identified. Mild sigmoid diverticulosis and small hyperplastic polyp of the ascending colon. PROCEDURE: Colonoscopy with biopsy. SURGEON: Taylor Gregory MD. ANESTHESIA: Monitored anesthesia care. ESTIMATED BLOOD LOSS: Minimal. FINDINGS: Mild chronic stage II external and internal hemorrhoids, redundant colon, no polyps or any neoplasms identified. Mild sigmoid diverticulosis and small hyperplastic polyp of the ascending colon. DISPOSITION: The patient tolerated the procedure well. INDICATIONS: The patient is a 75-year-old male who we had initially seen in 09/2018 for epigastric pain and for a screening colonoscopy. He had reported a history of a tubular adenoma identified in 2008. He also does have a family history of colon cancer with his mother having the disease and being diagnosed at 83 years of age. An attempt was made at a colonoscopy in 2017, however, he did have a long redundant colon and we were unable to intubate the cecum. DESCRIPTION OF PROCEDURE: The patient was brought to the endoscopy suite, laid in the left lateral decubitus position. After adequate IV pain and sedative medications and monitored anesthesia care, a digital rectal examination was performed, which revealed mild chronic stage II external and internal hemorrhoids, not actively edematous nor inflamed and no bleeding. Normal sphincter tone was felt and there were no palpable masses. Prostate gland was palpable and appeared normal. The endoscope was then intubated and anus and rectum gently insufflated. The endoscope was then advanced through the valves of [place] rectum with no polyps or any neoplasms identified. Through the sigmoid colon, mild to moderate sigmoid diverticulosis identified. The endoscope was advanced and remainder of the descending, transverse and ascending colon to the cecum. At the level of the ascending colon, a small hyperplastic polyp approximately 2 mm in size identified. This was biopsied with forceps with visualization of good hemostasis. The endoscope was then slowly withdrawn while taking a second look and suctioning of residual air with no additional findings. The patient tolerated the procedure well. We will recommend a high fiber diet with at least 30 grams of fiber daily as well as significant amounts of water to promote soft stools on a daily basis. Due to his first-degree family history of colon cancer, we will recommend a colonoscopy in 5 years. Job ID: [id number] DocumentID: [id number] Dictated Date: 01/14/2021 15:42:46 Post Closing Specialist Date: 01/14/2021 20:33:16 Dictated By: TAYLOR GREGORY MD
== END 2021-01-14 16:15 | disposition home or self-care (01) ==
LOC: ENDO 13:15
PROVIDERS: ATTEND Surgery
DX: Z12.11 Encounter for screening for malignant neoplasm of colon (principal); D12.2 Benign neoplasm of ascending colon; K64.1 Second degree hemorrhoids; K57.30 Diverticulosis of large intestine without perforation or abscess without bleeding; I10 Essential (primary) hypertension; K21.9 Gastro-esophageal reflux disease without esophagitis; E78.00 Pure hypercholesterolemia, unspecified; E66.01 Morbid (severe) obesity due to excess calories; Z68.37 Body mass index [BMI] 37.0-37.9, adult; G89.29 Other chronic pain; Z79.899 Other long term (current) drug therapy; Z79.82 Long term (current) use of aspirin; Z88.1 Allergy status to other antibiotic agents; Z88.5 Allergy status to narcotic agent; Z85.038 Personal history of other malignant neoplasm of large intestine; Z87.891 Personal history of nicotine dependence; Z86.010 Personal history of colon polyps; Z80.1 Family history of malignant neoplasm of trachea, bronchus and lung; Z80.0 Family history of malignant neoplasm of digestive organs
CPT/HCPCS: 88305

== ENCOUNTER → 2021-01-22 | Outpatient (CLI) | payer MEDICARE, OTHER ==
--- NOTE | 2021-01-22 15:52 | Diagnostic Imaging Report ---
INDICATION: Pain status post injury. COMPARISON: None. FINDINGS: Three views of the right foot demonstrate no acute fracture or dislocation. There are no focal osseous lesions. There is no soft tissue swelling. Joint spaces are well maintained. No radiopaque foreign bodies are seen. IMPRESSION: No acute fractures or dislocations of the right foot. Dictated by: Dictated on workstation # [id number]
--- NOTE | 2021-01-22 16:31 | Diagnostic Imaging Report ---
INDICATION: Pain COMPARISON: Imaging of the right foot from the same date. TECHNIQUE: 3 radiographs of the right ankle dated 01/22/2021 FINDINGS: No acute fracture or dislocation. Minimal irregularity and lucency are noted involving the medial aspect of the talar dome. The talar dome is otherwise unremarkable. The ankle mortise is symmetric. Os navicularis incidentally noted. IMPRESSION: Questionable tiny osteochondral defect associated with the medial aspect of the talar dome. Dictated by: Dictated on workstation # [id number]
== END ==
LOC: RAD 10:38
DX: M79.671 Pain in right foot (principal)
CPT/HCPCS: 73610; 73630

== ENCOUNTER 2021-04-12 16:07 | Observation (INO) | payer MEDICARE, OTHER ==
[~2021-04-12] VITALS: Ht 170.1 cm; Wt 105.4 kg
[2021-04-12 16:46] LABS: BASOPHILS # (AUTO) 0.1 10^3/uL (0.0-0.1); BASOPHILS % (AUTO) 1 % (0-10); EOSINOPHILS # (AUTO) 0.1 10^3/uL (0.0-0.3); EOSINOPHILS % (AUTO) 1 % (0-10); HEMATOCRIT 45 % (40-54); HEMOGLOBIN 15.5 g/dL (13.3-17.7); LYMPHOCYTES # (AUTO) 2.4 10^3/uL (1.0-4.0); LYMPHOCYTES % (AUTO) 27 % (12-44); MEAN CORPUSCULAR HEMOGLOBIN 31 pg (25-34); MEAN CORPUSCULAR HGB CONC 35 g/dL (32-36); MEAN CORPUSCULAR VOLUME 90 fL (80-99); MEAN PLATELET VOLUME 9.3 fL (9.0-12.2); MONOCYTES # (AUTO) 0.8 10^3/uL (0.0-1.0); MONOCYTES % (AUTO) 9 % (0-12); NEUTROPHILS # (AUTO) 5.6 10^3/uL (1.8-7.8); NEUTROPHILS % (AUTO) 63 % (42-75); PLATELET COUNT 319 10^3/uL (130-400); WHITE BLOOD COUNT 8.9 10^3/uL (4.3-11.0)
[2021-04-12 16:55] LABS: ALBUMIN 3.9 GM/DL (3.2-4.5); CHLORIDE 102 MMOL/L (98-107); POTASSIUM 3.9 MMOL/L (3.6-5.0); SODIUM 139 MMOL/L (135-145)
[2021-04-12 16:57] LABS: CALCIUM 9.3 MG/DL (8.5-10.1)
[2021-04-12 16:58] LABS: GLUCOSE 127 MG/DL (70-105); TOTAL PROTEIN 6.5 GM/DL (6.4-8.2)
[2021-04-12 16:59] LABS: CARBON DIOXIDE 21 MMOL/L (21-32)
[2021-04-12 17:00] LABS: BILIRUBIN,TOTAL 0.6 MG/DL (0.1-1.0)
--- NOTE | 2021-04-12 17:00 | Diagnostic Imaging Report ---
INDICATION: Chest wall pain. COMPARISON: Prior examination from 12/28/2020. FINDINGS: There is mild cardiomegaly. Lungs are clear. There is no pleural effusion or pneumothorax. Mediastinum is unremarkable. IMPRESSION: 1. No acute cardiopulmonary abnormality. 2. Mild cardiomegaly. Dictated by: Dictated on workstation # [id number]
[2021-04-12 17:01] LABS: ALKALINE PHOSPHATASE 50 U/L (40-136); CREATININE SERUM 0.93 MG/DL (0.60-1.30); GFR ESTIMATED > 60
[2021-04-12 17:02] LABS: BUN/CREATININE RATIO 16
--- NOTE | 2021-04-12 17:02 | Diagnostic Imaging Report ---
PROCEDURE: CT head w/o r/o stroke. TECHNIQUE: Multiple contiguous axial images were obtained through the brain without the use of intravenous contrast. Auto Exposure Controls were utilized during the CT exam to meet ALARA standards for radiation dose reduction. INDICATION: Left-sided weakness since 8:00 a.m. FINDINGS: There is no mass, shift of the midline or hemorrhage to suggest an acute intracranial abnormality. There is no sign of an asymmetric hyperdense vessel either. The ventricles are not abnormally dilated and similar in size to the prior CT head exam of 08/23/2009. There are vague areas of low density in the periventricular white matter, bilaterally. These findings are somewhat more conspicuous than on the prior exam. These areas of low density are nonspecific and may be related to encephalomalacia from microvascular ischemia. The cortical atrophy seen on the prior study does not appear to have progressed. The bone windows show no evidence for a fracture or for a destructive lesion. The orbits are symmetrical and within normal limits. The sinuses are generally clear, where visualized. IMPRESSION: 1. There is no evidence for an acute intracranial abnormality. 2. If clinical concern regarding an underlying abnormality persists then either CTA of the head and neck or MRI would be recommended for further study. 3. These results were discussed with Dr. Zabala in the Emergency Room. Dictated by: Dictated on workstation # [id number]
[2021-04-12 17:04] LABS: ALANINE AMINOTRANSFERASE 15 U/L (0-55)
[2021-04-12] MEDS ORDERED: HOLD METFORMIN - RECEIVED CONTRAST 20 ML VIAL IV SCH (17:15)
[2021-04-12] MEDS ORDERED: IOHEXOL 350 MG/ML 100 ML (OMNIPAQUE 350) VIAL IV ONE (17:15)
[2021-04-12] MEDS ORDERED: NS 100 ML (IVPB) BAG IV ONE (17:15)
[2021-04-12] MEDS ORDERED: CATHETER FLUSH 10 ML SYR IV PRN ×2 (17:15→20:30)
[2021-04-12 17:19] LABS: FIBRIN DEGRADATION PRODUCTS 0.49 UG/ML (0.00-0.49); INR 1.1 (0.8-1.4); PROTHROMBIN TIME PATIENT 14.2 SEC (12.2-14.7)
[2021-04-12 18:01] LABS: CLARITY,URINE CLEAR; COLOR,URINE AMBER; GLUCOSE, URINE (UA) NEGATIVE (NEGATIVE); KETONES,URINE 1+ (NEGATIVE); LEUKOCYTE ESTERASE ,URINE NEGATIVE (NEGATIVE); NITRITE,URINE NEGATIVE (NEGATIVE); PROTEIN,URINE 1+ (NEGATIVE)
[2021-04-12 18:22] LABS: AMORPHOUS SEDIMENT,UR MOD AMOR URATES /LPF; BACTERIA,URINE NEGATIVE /HPF
[2021-04-12 18:23] LABS: BILIRUBIN,URINE 2+ (NEGATIVE)
[2021-04-12 18:24] LABS: WBC,URINE 0-2 /HPF
--- NOTE | 2021-04-12 18:32 | Diagnostic Imaging Report ---
PROCEDURE: CT angiography of the head and CT angiography of the neck with and without contrast. TECHNIQUE: Contiguous noncontrast images were obtained from the skull base through the vertex. After intravenous contrast administration, helical CT angiography of the neck was performed. Source data was reformatted into 3D MIP projections. Delayed post contrast acquisition was also obtained. Auto Exposure Controls were utilized during the CT exam to meet ALARA standards for radiation dose reduction. INDICATION: Left weakness. COMPARISON: Prior examination from earlier the same day. FINDINGS: There is prominence of the ventricles and sulci. Some chronic microvascular ischemic disease. There is no hydrocephalus. There is no midline shift. There is no mass, hemorrhage or extra-axial fluid collection. There is no evidence of a large vessel occlusion. There is no evidence of aneurysm or AVM. The sinuses and mastoid air cells are clear. There is mild atherosclerotic calcification about the left carotid bifurcation. The common carotid vertebral arteries and intracarotid arteries are otherwise widely patent. There is no dissection, stenosis or occlusion. The nasopharyngeal, oropharyngeal and hypopharyngeal tissues are symmetrical and without mass effect. The parotid, submandibular and thyroid glands are normal in appearance. The lung apices are clear. There are mild degenerative changes in the spine. The prevertebral soft tissues are within normal limits. Epiglottis is unremarkable. There is no pathologically enlarged adenopathy or mass in the neck. IMPRESSION: 1. Atrophy and some chronic microvascular ischemic disease; however, no evidence of large vessel occlusion intracranially. 2. Minimal atherosclerotic calcification about the left carotid bifurcation; however, no dissection, stenosis or occlusion in the major vessels of the neck. Dictated by: Dictated on workstation # [id number]
[2021-04-12] MEDS ORDERED: NS IV 1000 ML 1,000 ML IV SCH (18:45)
[2021-04-12] MEDS ORDERED: ASPIRIN 325 MG (5 GR) TABLET ONE (18:49)
[2021-04-12] MEDS ORDERED: ASPIRIN 325 MG (5 GR) TABLET PO ONE (19:00)
--- NOTE | 2021-04-12 19:03 | ED Neurological Problem ---
General Chief Complaint: Neuro-Stroke Like Symptoms Stated Complaint: STROKE LIKE SYMPTOMS Nursing Triage Note: Pt to ED in wheelchair. Pt c/o L arm weakness that began this morning. Last known well time of 0830 this morning. Pt reports feeling "weak all over." Pt reports chronic back pain. Nursing Sepsis Screen: No Definite Risk Source: patient, family Exam Limitations: no limitations History of Present Illness Date Seen by Provider: April 12, 2021 Time Seen by Provider: 16:22 Initial Comments This 75-year-old gentleman presents to the emergency room via private vehicle with complaints of left RVED leg weakness. He woke with the weakness around 0830 this morning. His last known well time was around 20 200 last night. Symptoms were fairly severe earlier and he required assistance getting his leg into the car. He used his right hand to move his left arm as well according to family. At the time of her by evaluation he had an NIH score of 3 for minimal drift of the left arm and leg and facial droop on the left with smiling. Allergies and Home Medications Allergies Coded Allergies: ketorolac (Unverified Allergy, Mild, 09/21/18) minocycline (Verified Allergy, Unknown, 09/21/18) Home Medications Aspirin 81 Mg Tab.chew, 81 MG PO DAILY, (Reported) Ezetimibe 10 Mg Tablet, 1 TAB PO DAILY, (Reported) Lisinopril 20 Mg Tablet, 1 TAB PO DAILY, (Reported) Morphine Sulfate 100 Mg Tablet.er, 100 MG PO Q8H, (Reported) Promethazine HCl 50 Mg Tablet, 50 MG PO Q6H PRN for NAUSEA/VOMITING-1ST LINE, (Reported) Rosuvastatin Calcium 20 Mg Tablet, 20 MG PO DAILY, (Reported) Tizanidine HCl 4 Mg Tablet, 4 MG PO Q8H PRN for MUSCLE SPASMS, (Reported) Patient Home Medication List Home Medication List Reviewed: Yes Review of Systems Review of Systems Constitutional: no symptoms reported Eyes: No Symptoms Reported Ears, Nose, Mouth, Throat: no symptoms reported Respiratory: no symptoms reported Cardiovascular: no symptoms reported Gastrointestinal: no symptoms reported Genitourinary: no symptoms reported Musculoskeletal: no symptoms reported Skin: no symptoms reported Psychiatric/Neurological: See HPI Endocrine: No Symptoms Reported Hematologic/Lymphatic: No Symptoms Reported Past Zrxcibo-Tcoivj-Pcikqr Hx Past Med/Social Hx: Reviewed Nursing Past Med/Soc Hx Patient Social History Alcohol Use: Denies Use Smoking Status: Current Everyday Smoker Type Used: Cigars Former Smoker, Quit: Sep 21, 1997 2nd Hand Smoke Exposure: No Recent Infectious Disease Expo: No Recent Hopitalizations: No Immunizations Up To Date Date of Pneumonia Vaccine: Sep 21, 2015 Date of Influenza Vaccine: Aug 21, 2018 Seasonal Allergies Seasonal Allergies: No Past Medical History Surgeries: Yes (PROSTATE, PENILE IMPLANT, LEFT TESTICLE REMOVAL, HERNIA) Abdominal, Amputation, Gallbladder, Orthopedic Respiratory: No Currently Using CPAP: Yes Cardiac: Yes High Cholesterol, Hypertension Neurological: No Reproductive Disorders: No Sexually Transmitted Disease: No HIV/AIDS: No Genitourinary: Yes Prostate Problems Gastrointestinal: Yes Abdominal Hernia, Chronic Constipation Musculoskeletal: Yes Chronic Back Pain Endocrine: No HEENT: No Cancer: No Psychosocial: No Integumentary: No Blood Disorders: No Adverse Reaction/Blood Tranf: No Family Medical History Heart Disease, Diabetes, Hypertension Physical Exam Vital Signs Vital Signs - First Documented 04/12/21 16:10 Temp 35.7 Pulse 89 Resp 20 B/P (MAP) 134/95 (108) Pulse Ox 95 O2 Delivery Room Air Capillary Refill : Less Than 3 Seconds Height, Weight, BMI Height: 5'7.00" Weight: 208lbs. 0.0oz. 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, alert, normal mood/affect, oriented x 3, motor weakness Crainal Nerves: normal hearing, normal speech, PERRL Coordination/Gait: normal finger to nose (Normal qxie-us-[id number]), normal gait Motor/Sensory: no sensory deficit, weak motor strength LUE (Very subtle drift), weak motor strength LLE (Very subtle drift) Skin: normal color, warm/dry Stroke Onset of Symptoms Date of Onset of Symptoms: April 11, 2021 NIH Stroke Scale Assessment Level of Consciousness: 0=Alert (0), Level of Consciousness-Questions: 0=Answers both month/age (0), LOC Commands: 0=Performs both tasks (0), Visual López: 0=No visual loss (0), Facial Movement (Facial Paresis): 1=Minor paralysis (1), Motor Function-Arms Right: 0=No drift (0), Motor Function-Arms Left: 1=Drift (1), Motor Function-Legs Right: 0=No drift (0), Motor Function- Legs Left: 1=Drift (1), Limb Ataxia: 0=Absent (0), Sensory: 0=Normal:no loss (0), Best Language: 0=No aphasia (0), Dysarthria: 0=Normal (0), Extinction & Inattention: 0=No abnormality (0), Total: 3 Progress/Results/Core Measures Results/Orders Lab Results Laboratory Tests Test 04/12/21 16:40 04/12/21 17:18 04/12/21 17:50 Range/Units White Blood Count 8.9 4.3-11.0 10^3/uL Red Blood Count 4.97 4.30-5.52 10^6/uL Hemoglobin 15.5 13.3-17.7 g/dL Hematocrit 45 40-54 % Mean Corpuscular Volume 90 80-99 fL Mean Corpuscular Hemoglobin 31 25-34 pg Mean Corpuscular Hemoglobin Concent 35 32-36 g/dL Red Cell Distribution Width 14.1 10.0-14.5 % Platelet Count 319 130-400 10^3/uL Mean Platelet Volume 9.3 9.0-12.2 fL Immature Granulocyte % (Auto) 1 % Neutrophils (%) (Auto) 63 42-75 % Lymphocytes (%) (Auto) 27 12-44 % Monocytes (%) (Auto) 9 0-12 % Eosinophils (%) (Auto) 1 0-10 % Basophils (%) (Auto) 1 0-10 % Neutrophils # (Auto) 5.6 1.8-7.8 10^3/uL Lymphocytes # (Auto) 2.4 1.0-4.0 10^3/uL Monocytes # (Auto) 0.8 0.0-1.0 10^3/uL Eosinophils # (Auto) 0.1 0.0-0.3 10^3/uL Basophils # (Auto) 0.1 0.0-0.1 10^3/uL Immature Granulocyte # (Auto) 0.0 0.0-0.1 10^3/uL Prothrombin Time 14.2 12.2-14.7 SEC INR Comment 1.1 0.8-1.4 Activated Partial Thromboplast Time 25 24-35 SEC D-Dimer 0.49 0.00-0.49 UG/ML Sodium Level 139 135-145 MMOL/L Potassium Level 3.9 3.6-5.0 MMOL/L Chloride Level 102 98-107 MMOL/L Carbon Dioxide Level 21 21-32 MMOL/L Anion Gap 16 H 5-14 MMOL/L Blood Urea Nitrogen 15 7-18 MG/DL Creatinine 0.93 0.60-1.30 MG/DL Estimat Glomerular Filtration Rate > 60 BUN/Creatinine Ratio 16 Glucose Level 127 H 70-105 MG/DL Calcium Level 9.3 8.5-10.1 MG/DL Corrected Calcium 9.4 8.5-10.1 MG/DL Total Bilirubin 0.6 0.1-1.0 MG/DL Aspartate Amino Transf (AST/SGOT) 16 5-34 U/L Alanine Aminotransferase (ALT/SGPT) 15 0-55 U/L Alkaline Phosphatase 50 40-136 U/L Troponin I < 0.028 <0.028 NG/ML Total Protein 6.5 6.4-8.2 GM/DL Albumin 3.9 3.2-4.5 GM/DL Glucometer 127 H 70-110 MG/DL Urine Color NINO H Urine Clarity CLEAR Urine pH 5.0 5-9 Urine Specific [place] >=1.030 1.016-1.022 Urine Protein 1+ H NEGATIVE Urine Glucose (UA) NEGATIVE NEGATIVE Urine Ketones 1+ H NEGATIVE Urine Nitrite NEGATIVE NEGATIVE Urine Bilirubin 2+ H NEGATIVE Urine Urobilinogen 2.0 < = 1.0 MG/DL Urine Leukocyte Esterase NEGATIVE NEGATIVE Urine RBC (Auto) NEGATIVE NEGATIVE Urine RBC NONE /HPF Urine WBC 0-2 /HPF Urine Crystals PRESENT H /LPF Urine Amorphous Sediment MOD JUS URATES H /LPF Urine Bacteria NEGATIVE /HPF Urine Casts PRESENT /LPF Urine Hyaline Casts 2-5 H /LPF Urine Mucus LARGE H /LPF Urine Culture Indicated NO My Orders Orders - DEANGELO BHANDARI MD Cbc With Automated Diff (04/12/21 16:32) Protime With Inr (04/12/21 16:32) Partial Thromboplastin Time (04/12/21 16:32) Comprehensive Metabolic Panel (04/12/21 16:32) Fibrin Degradation Products (04/12/21 16:32) Troponin I (04/12/21 16:32) Ua Culture If Indicated (04/12/21 16:32) Chest 1 View, Ap/Pa Only (04/12/21 16:32) Ekg Tracing (04/12/21 16:32) Nothing By Mouth (04/12/21 Dinner) Accucheck Stat ONCE (04/12/21 16:32) Ed Iv/Invasive Line Start (04/12/21 16:32) Ed Iv/Invasive Line Start (04/12/21 16:32) Vital Signs Stroke Patient Q15M (04/12/21 16:32) Ct Head Wo-R/O Stroke (04/12/21 16:32) O2 (04/12/21 16:32) Intake & Output 06,14,22 (04/12/21 16:32) Monitor-Rhythm Ecg Trace Only (04/12/21 16:32) Dysphagia Screening Tool (04/12/21 16:32) Post Thrombolytic Adminstratio (04/12/21 16:32) Lipid Panel (04/13/21 06:00) Ct Angio Head/Neck (04/12/21 17:13) Iohexol Injection (Omnipaque 350 Mg/Ml 1 (04/12/21 17:15) Received Contrast (Hold Metformin- Contr (04/12/21 17:15) Sodium Chloride Flush (Catheter Flush Sy (04/12/21 17:15) Ns (Ivpb) (Sodium Chloride 0.9% Ivpb Bag (04/12/21 17:15) Ns Iv 1000 Ml (Sodium Chloride 0.9%) (04/12/21 18:45) Aspirin Tablet (Aspirin Tablet) (04/12/21 19:00) Aspirin Tablet (Aspirin Tablet) (04/12/21 18:49) Medications Given in ED Current Medications Medications Dose Ordered Sig/Kathya Route Start Time Stop Time Status Last Admin Dose Admin Aspirin 325 mg ONCE ONCE PO 04/12/21 19:00 04/12/21 19:01 DC 04/12/21 19:00 325 MG Iohexol 75 ml ONCE ONCE IV 04/12/21 17:15 04/12/21 18:04 DC 04/12/21 17:58 75 ML Sodium Chloride 10 ml NEEDED PRN IV 04/12/21 17:15 04/12/21 17:59 10 ML Sodium Chloride 100 ml ONCE ONCE IV 04/12/21 17:15 04/12/21 18:04 DC 04/12/21 17:58 80 ML Vital Signs/I&O 04/12/21 16:10 Temp 35.7 Pulse 89 Resp 20 B/P (MAP) 134/95 (108) Pulse Ox 95 O2 Delivery Room Air Blood Pressure Mean: 108 FSBG Bedside Testing Finger Stick Blood Glucose: 127 Blood Glucose Action Taken: THONY NOTIFIED Progress Progress Note : Time: 19:17 Progress Note Stroke change during assessment. Patient's NIH was initially 3. Scores were 1 for each of the left extremities for subtle drift and 1 for facial weakness with smiling. The drift resolved and patient was fully ambulatory without difficulty. The facial asymmetry with smiling remained. NIH stroke score at time of admission was 1. Patient's ABCD 2 score is 4. For this reason he should be admitted and started on dual antiplatelet therapy for 3 weeks. A loading dose of Plavix as well as aspirin were given in the ER. Case was discussed with Dr. Arnold who agrees with admission. Patient would like to be full code but would not like prolonged life support measures. Initial ECG Impression Date: April 12, 2021 Initial ECG Impression Time: 16:13 Initial ECG Rate: 70 Initial ECG Rhythm: Normal Sinus Initial ECG Intervals: Normal Comment Normal sinus rhythm with no ST elevation or depression. PAC noted. Sinus arrhythmia noted on the monitor. No axis deviation. Diagnostic Imaging Diagonstic Imaging: CT Plain Films/CT/US/NM/MRI: head Comments CT head viewed by me and report reviewed. Discussed with radiologist. See report below: NAME: AMANDA KENDALL [facility] REC#: [id number] PT STATUS: REG ER : 1945 PHYSICIAN: DEANGELO BHANDARI MD ADMIT DATE: 04/12/21/ER Draft Date of Exam:04/12/21 CT HEAD WO-R/O STROKE PROCEDURE: CT head w/o r/o stroke. TECHNIQUE: Multiple contiguous axial images were obtained through the brain without the use of intravenous contrast. Auto Exposure Controls were utilized during the CT exam to meet ALARA standards for radiation dose reduction. INDICATION: Left-sided weakness since 8:00 a.m. FINDINGS: There is no mass, shift of the midline or hemorrhage to suggest an acute intracranial abnormality. There is no sign of an asymmetric hyperdense vessel either. The ventricles are not abnormally dilated and similar in size to the prior CT head exam of 08/23/2009. There are vague areas of low density in the periventricular white matter, bilaterally. These findings are somewhat more conspicuous than on the prior exam. These areas of low density are nonspecific and may be related to encephalomalacia from microvascular ischemia. The cortical atrophy seen on the prior study does not appear to have progressed. The bone windows show no evidence for a fracture or for a destructive lesion. The orbits are symmetrical and within normal limits. The sinuses are generally clear, where visualized. IMPRESSION: 1. There is no evidence for an acute intracranial abnormality. 2. If clinical concern regarding an underlying abnormality persists then either CTA of the head and neck or MRI would be recommended for further study. 3. These results were discussed with Dr. Zabala in the Emergency Room. Dictated on workstation # [id number] Dict: 04/12/[id number] Trans: 04/12/21 3183 [id number] Interpreted by: SUNNY TRAVIS MD Diagonstic Imaging: Xray Plain Films/CT/US/NM/MRI: chest Comments NAME: AMANDA KENDALL [facility] REC#: [id number] PT STATUS: REG ER : 1945 PHYSICIAN: DEANGELO BHANDARI MD ADMIT DATE: 04/12/21/ER Signed Date of Exam:04/12/21 CHEST 1 VIEW, AP/PA ONLY INDICATION: Chest wall pain. COMPARISON: Prior examination from 12/28/2020. FINDINGS: There is mild cardiomegaly. Lungs are clear. There is no pleural effusion or pneumothorax. Mediastinum is unremarkable. IMPRESSION: 1. No acute cardiopulmonary abnormality. 2. Mild cardiomegaly. Dictated by: Dictated on workstation # [id number] Dict: [id number]/12/[id number] Trans: 04/12/21 172 [facility] [id number] Interpreted by: ARNALDO CHAVEZ MD Electronically signed by: ARNALDO CHAVEZ MD 04/12/21 1724 Diagonstic Imaging: CT Plain Films/CT/US/NM/MRI: other (Angiogram head and neck) Comments NAME: AMANDA KENDALL [facility] REC#: [id number] PT STATUS: REG ER : 1945 PHYSICIAN: DEANGELO BHANDARI MD ADMIT DATE: 04/12/21/ER Signed Date of Exam:04/12/21 CT ANGIO HEAD/NECK PROCEDURE: CT angiography of the head and CT angiography of the neck with and without contrast. TECHNIQUE: Contiguous noncontrast images were obtained from the skull base through the vertex. After intravenous contrast administration, helical CT angiography of the neck was performed. Source data was reformatted into 3D MIP projections. Delayed post contrast acquisition was also obtained. Auto Exposure Controls were utilized during the CT exam to meet ALARA standards for radiation dose reduction. INDICATION: Left weakness. COMPARISON: Prior examination from earlier the same day. FINDINGS: There is prominence of the ventricles and sulci. Some chronic microvascular ischemic disease. There is no hydrocephalus. There is no midline shift. There is no mass, hemorrhage or extra-axial fluid collection. There is no evidence of a large vessel occlusion. There is no evidence of aneurysm or AVM. The sinuses and mastoid air cells are clear. There is mild atherosclerotic calcification about the left carotid bifurcation. The common carotid vertebral arteries and intracarotid arteries are otherwise widely patent. There is no dissection, stenosis or occlusion. The nasopharyngeal, oropharyngeal and hypopharyngeal tissues are symmetrical and without mass effect. The parotid, submandibular and thyroid glands are normal in appearance. The lung apices are clear. There are mild degenerative changes in the spine. The prevertebral soft tissues are within normal limits. Epiglottis is unremarkable. There is no pathologically enlarged adenopathy or mass in the neck. IMPRESSION: 1. Atrophy and some chronic microvascular ischemic disease; however, no evidence of large vessel occlusion intracranially. 2. Minimal atherosclerotic calcification about the left carotid bifurcation; however, no dissection, stenosis or occlusion in the major vessels of the neck. Dictated by: Dictated on workstation # [id number] Dict: 04/12/21 181 Trans: 04/12/[id number] [facility] [id number] Interpreted by: ARNALDO CHAVEZ MD Electronically signed by: ARNALDO CHAVEZ MD 04/12/211844 Departure Communication (Admissions) Time/Spoke to Admitting Phy: 18:50 Dr. Arnold Impression Primary Impression: Left-sided weakness Disposition: ADMITTED INPATIENT Condition: Improved Admissions Decision to Admit Reason: Admit from ER (General) Decision to Admit/Date: April 12, 2021 Time/Decision to Admit Time: 18:50 Departure-Patient Inst. Referrals: DANAE TERRELL MD (PCP/Family) Primary Care Physician DEANGELO BHANDARI MD April 12, 2021 19:03
[2021-04-12] MEDS ORDERED: CLOPIDOGREL 300 MG (PLAVIX) TABLET PO ONE (19:15)
[2021-04-12 19:55] VITALS: BP 139/72
[2021-04-12] MEDS ORDERED: PATIENT MAY USE OWN MEDS, ALL MC SCH (20:15)
[2021-04-12] MEDS: CLOPIDOGREL 75 MG (PLAVIX) TABLET PO SCH (20:42)
[2021-04-12] MEDS: CATHETER FLUSH 10 ML SYR IV SCH (21:11)
[2021-04-12] MEDS: ROSUVASTATIN 20 MG (CRESTOR) TABLET PO SCH (21:21)
[2021-04-12] MEDS: meTOprolol SUCCINATE 100 MG (TOPROL XL) TAB PO SCH (21:21)
[2021-04-12] MEDS: HYDROcodone/APAP 5 MG/325 MG (LORTAB) TAB PO PRN (21:21)
[2021-04-12 23:43] VITALS: BP 138/85
[2021-04-13] MEDS: HYDROcodone/APAP 5 MG/325 MG (LORTAB) TAB PO PRN ×4 (00:24→18:01)
[2021-04-13 04:06] VITALS: BP 103/71
[2021-04-13 05:06] LABS: CHLORIDE 103 MMOL/L (98-107); POTASSIUM 3.8 MMOL/L (3.6-5.0); SODIUM 139 MMOL/L (135-145)
[2021-04-13 05:07] LABS: CALCIUM 9.3 MG/DL (8.5-10.1)
[2021-04-13 05:08] LABS: GLUCOSE 124 MG/DL (70-105); TRIGLYCERIDES 192 MG/DL (<150); VLDL CHOLESTEROL 38 MG/DL (5-40)
[2021-04-13 05:09] LABS: CARBON DIOXIDE 22 MMOL/L (21-32)
[2021-04-13 05:11] LABS: CREATININE SERUM 0.81 MG/DL (0.60-1.30); GFR ESTIMATED > 60
[2021-04-13 05:12] LABS: BUN/CREATININE RATIO 21
[2021-04-13 05:13] LABS: CHOLESTEROL 161 MG/DL (< 200); HDL CHOLESTEROL 33 MG/DL (40-60)
[2021-04-13] MEDS: CATHETER FLUSH 10 ML SYR IV SCH ×3 (05:13→20:00)
[2021-04-13] MEDS ORDERED: LINA72CA PO (06:25)
[2021-04-13] MEDS ORDERED: HYDR-3820 PO (06:25)
[2021-04-13] MEDS ORDERED: MTP100TCR PO (06:26)
[2021-04-13] MEDS ORDERED: OMEP20CA18 PO (06:28)
[2021-04-13] MEDS ORDERED: GBPN600T PO (06:29)
[2021-04-13] MEDS ORDERED: POTA10TA36 PO (06:38)
[2021-04-13 07:47] VITALS: BP 133/87
[2021-04-13] MEDS: lisINopril 20 MG (PRINIVIL) TABLET PO SCH (08:16)
[2021-04-13] MEDS: CLOPIDOGREL 75 MG (PLAVIX) TABLET PO SCH (08:16)
[2021-04-13] MEDS: ASPIRIN 81 MG CHEW (CHILDREN'S ASA) PO SCH (08:16)
[2021-04-13] MEDS: meTOprolol SUCCINATE 100 MG (TOPROL XL) TAB PO SCH (08:16)
--- NOTE | 2021-04-13 09:41 | History & Physical-Hospitalist ---
History of Present Illness HPI/Chief Complaint Pt is a 75yoCM with a PMH of HTN, HLD, chornic back pain on chronic narcotics, BPH, tobacco abuse who presented to the ER due to left sided weakness. He reports he was feeling in his usual health until 830AM yesterday when he was working in the garage and his left arm wouldn't move. He then felt weak all over and went inside. His symptoms resolved briefly but recurred in the afternoon prompting him to seek evaluation in the ER. He was relucant to tell me this part but his family states he had slurred speech, a facial droop, and left sided weakness then. He had a CT and CTA of his head that were both negative and by the end fo his ER stay his symptoms mostly resolved. He was admitted for stroke evaluation. This morning he reports that his symptoms have completely resolved and his family confirms this. He had no complaints. Source: patient Date Seen 04/13/21 Time Seen by a Provider: 09:30 Attending Physician Marilyn Arnold MD PCP Rai Colunga MD Referring Physician Date of Admission April 12, 2021 at 19:11 Home Medications & Allergies Home Medications Reviewed patient Home Medication Reconciliation performed by pharmacy medication reconciliations install technician and/or nursing. Patients Allergies have been reviewed. Allergies Allergies Coded Allergies ketorolac (Unverified Allergy, Mild, 09/21/18) minocycline (Verified Allergy, Unknown, 09/21/18) Past Scecmjw-Dzoikn-Psopxq Hx Patient Social History Marrital Status: Employed/Student: retired Tobacco Use?: Yes Tobacco type used: Cigars, Cigarettes Smoking Status: Current Everyday Smoker Use of E-Cig and/or Vaping dev: No Additional E-Cig or Vaping: FORMER SMOKER, DOES SMOKE CIGARS Alcohol Use?: No Pt feels they are or have been: No Immunizations Up To Date Date of Influenza Vaccine: Jul 29, 2020 First/Initial COVID19 Vaccinat: 02-18-21 Second COVID19 Vaccination Blair: 03-20-21 Tetanus Booster (TDap): Unknown Date of Pneumonia Vaccine: Sep 21, 2015 Seasonal Allergies Seasonal Allergies: No Current Status Advance Directives: No Communicates: Verbally Primary Language: Colombian Preferred Spoken Language: Colombian Is interpretation needed?: No Sensory deficits: Vision impairment, Hearing impairment Implanted or Applied Medical D: CPAP Past Medical History Surgeries: Abdominal, Amputation, Gallbladder, Orthopedic Currently Using CPAP: Yes High Cholesterol, Hypertension Sexually Transmitted Disease: No HIV/AIDS: No Prostate Problems Abdominal Hernia, Chronic Constipation Chronic Back Pain Blood Disorders: No Adverse Reaction/Blood Tranf: No Family Medical History Reviewed Nursing Family Hx Heart Disease, Diabetes, Hypertension Review of Systems Constitutional: No chills, No fever EENTM: no symptoms reported Respiratory: No cough, No short of breath Cardiovascular: No chest pain; edema (mild, chronic); No Hx of Intervention, No palpitations Gastrointestinal: No abdominal pain, No diarrhea, No loss of appetite, No nausea, No vomiting Genitourinary: no symptoms reported Musculoskeletal: see HPI Skin: no symptoms reported Psychiatric/Neurological: See HPI Physical Exam Physical Exam Vital Signs Vital Signs - First Documented 04/12/21 16:10 Temp 35.7 Pulse 89 Resp 20 B/P (MAP) 134/95 (108) Pulse Ox 95 O2 Delivery Room Air Capillary Refill : Less Than 3 Seconds Height, Weight, BMI Height: 5'7.00" Weight: 208lbs. 0.0oz. 94.352932hf; 36.25 BMI Method:Stated General Appearance: No Apparent Distress, WD/WN HEENT: PERRL/EOMI, Moist Mucous Membranes Neck: Normal Inspection, Supple Respiratory: Lungs Clear, No Accessory Muscle Use, No Respiratory Distress Cardiovascular: Regular Rate, Rhythm, No Murmur Gastrointestinal: Normal Bowel Sounds, Non Tender, Soft Extremity: Other (right index finger amputation) Neurologic/Psychiatric: Alert, Oriented x3, Facial Droop (very mild and only with smile), Motor Weakness (4+/5 on LLE, upper extremity strength intact) Skin: Normal Color, Warm/Dry Results Results/Procedures Labs Laboratory Tests 04/12/21 16:40 04/13/21 04:40 Patient resulted labs reviewed. Imaging: Reviewed Imaging Report Imaging [facility], [place] NAME: KENDALLAMANDA REC#: [id number] PT STATUS: ADM Uriel : 1945 PHYSICIAN: DEANGELO BHANDARI MD ADMIT DATE: 04/12/21/ Signed Date of Exam:04/12/21 CT HEAD WO-R/O STROKE PROCEDURE: CT head w/o r/o stroke. TECHNIQUE: Multiple contiguous axial images were obtained through the brain without the use of intravenous contrast. Auto Exposure Controls were utilized during the CT exam to meet ALARA standards for radiation dose reduction. INDICATION: Left-sided weakness since 8:00 a.m. FINDINGS: There is no mass, shift of the midline or hemorrhage to suggest an acute intracranial abnormality. There is no sign of an asymmetric hyperdense vessel either. The ventricles are not abnormally dilated and similar in size to the prior CT head exam of 08/23/2009. There are vague areas of low density in the periventricular white matter, bilaterally. These findings are somewhat more conspicuous than on the prior exam. These areas of low density are nonspecific and may be related to encephalomalacia from microvascular ischemia. The cortical atrophy seen on the prior study does not appear to have progressed. The bone windows show no evidence for a fracture or for a destructive lesion. The orbits are symmetrical and within normal limits. The sinuses are generally clear, where visualized. IMPRESSION: 1. There is no evidence for an acute intracranial abnormality. 2. If clinical concern regarding an underlying abnormality persists then either CTA of the head and neck or MRI would be recommended for further study. 3. These results were discussed with Dr. Zabala in the Emergency Room. Dictated by: Dictated on workstation # [id number] Dict: 04/12/[id number] Trans: 04/12/212224 [facility] [id number] Interpreted by: SUNNY TRAVIS MD Electronically signed by: SUNNY TRAVIS MD 04/12/212224 [facility], [place] NAME: KENDALLAMANDA D [facility] REC#: [id number] PT STATUS: REG ER : 1945 PHYSICIAN: DEANGELO BHANDARI MD ADMIT DATE: 04/12/21/ER Signed Date of Exam:04/12/21 CT ANGIO HEAD/NECK PROCEDURE: CT angiography of the head and CT angiography of the neck with and without contrast. TECHNIQUE: Contiguous noncontrast images were obtained from the skull base through the vertex. After intravenous contrast administration, helical CT angiography of the neck was performed. Source data was reformatted into 3D MIP projections. Delayed post contrast acquisition was also obtained. Auto Exposure Controls were utilized during the CT exam to meet ALARA standards for radiation dose reduction. INDICATION: Left weakness. COMPARISON: Prior examination from earlier the same day. FINDINGS: There is prominence of the ventricles and sulci. Some chronic microvascular ischemic disease. There is no hydrocephalus. There is no midline shift. There is no mass, hemorrhage or extra-axial fluid collection. There is no evidence of a large vessel occlusion. There is no evidence of aneurysm or AVM. The sinuses and mastoid air cells are clear. There is mild atherosclerotic calcification about the left carotid bifurcation. The common carotid vertebral arteries and intracarotid arteries are otherwise widely patent. There is no dissection, stenosis or occlusion. The nasopharyngeal, oropharyngeal and hypopharyngeal tissues are symmetrical and without mass effect. The parotid, submandibular and thyroid glands are normal in appearance. The lung apices are clear. There are mild degenerative changes in the spine. The prevertebral soft tissues are within normal limits. Epiglottis is unremarkable. There is no pathologically enlarged adenopathy or mass in the neck. IMPRESSION: 1. Atrophy and some chronic microvascular ischemic disease; however, no evidence of large vessel occlusion intracranially. 2. Minimal atherosclerotic calcification about the left carotid bifurcation; however, no dissection, stenosis or occlusion in the major vessels of the neck. Dictated by: Dictated on workstation # [id number] Dict: 04/12/211818 Trans: 04/12/211844 [facility] [id number] Interpreted by: ARNALDO CHAVEZ MD Electronically signed by: ARNALDO CHAVEZ MD 04/12/21 8205 Assessment/Plan Admission Diagnosis left sided weakness Reason for Inpatient Admission: see below Assessment and Plan left sided weakness TIA vs stroke Symptoms mostly resolved today but still some left leg weakness Reviewed MRI from 2016 and does have left side neuroforaminal stenosis so may be preexisting and somild patient has not noticed MRI ordered for the AM Continue ASA, Plavix, and statin PT/OT pSVT Report from RN that he had runs of SVT overnight Cardiology consulted, appreciate recs Continue Metoprolol HTN HLD Continue home meds DVT ppx: Lovenox Clinical Quality Measures Stroke: Date of last known well: April 11, 2021 SALVATORE GILLIAM MD April 13, 2021 09:41
[2021-04-13] MEDS ORDERED: ENOXAPARIN 100 MG/1 ML (LOVENOX) SYR SC SCH (10:30)
--- NOTE | 2021-04-13 10:36 | Physical Therapy Evaluation ---
PT Evaluation-General Medical Diagnosis Admission Date April 12, 2021 at 19:11 Medical Diagnosis: Gait instability Onset Date: April 12, 2021 Therapy Diagnosis Therapy Diagnosis: gait instability Height/Weight Height (Feet): 5 Height (Inches): 7.00 Weight (Pounds): 208 Weight (Ounces): 0.0 Precautions Precautions/Isolations: Fall Prevention, Standard Precautions Weight Bear Status Full Weight Bearing Full Weight Bearing Referral Physician: Dominic Reason for Referral: Gait Medical History Pertinent Medical History: Back Injury, HTN, Smoking Current History Pt had sudden onset of (L) UE weakness, generalized weakness, and fatigue on 04/12/21. Pt admitted via ER. CT scan negative for sign of CVA. Social History Home: Single Level Current Living Status: Spouse Pt reports he feels he is at baseline physically. Prior Prior Level of Function SCALE: Activities may be completed with or without assistive devices. 0-Fyudjgnxdh-zbdfyal completes the activity by him/herself with no assistance from a helper. 5-Set-up or Clean-up Assistance-helper sets up or cleans up; patient completes activity. [place] assists only prior to or following the activity. 4-Supervision or Touching Assistance-helper provides verbal cues and/or touching/steadying and/or contact guard assistance as patient completes activity. Assistance may be provided throughout the activity or intermittently. 3-Partial/Moderate Assistance-helper does LESS THAN HALF the effort. [place] lifts, holds or supports trunk or limbs, but provides less than half the effort. 2-Substantial/Maximal Assistance-helper does MORE THAN HALF the effort. [place] lifts or holds trunk or limbs and provides more than half the effort. 4-Ysbdnnimk-ykethf does ALL the effort. Patient does none of the effort to complete the activity. Or, the assistance of 2 or more helpers is required for the patient to complete the activity. If activity was not attempted, code reason: 7-Patient Refused. 9-Not Applicable-not attempted and the patient did not perform the activity before the current illness, exacerbation or injury. 10-Not Attempted due to Environmental Limitations-(lack of equipment, weather restraints, etc.). 88-Not Attempted due to Medical Conditions or Safety Concerns. Bed Mobility: 6 Transfers (B,C,W/C): 6 Gait: 6 Stairs: 6 Indoor Mobility (Ambulation): Independent Stairs: Independent Prior Device Use: occasional use of single point cane PT Evaluation-Current Pt/Family Goals Pt plans to return to home as soon as possible. Objective Patient Orientation: Normal For Age ROM/Strength ROM Upper Extremities Full range ROM Lower Extremities WFL Strength Upper Extremities Gross 5/5 Strength Lower Extremities Gross 5/5 Sensory Vision: Functional Hearing: Functional Transfers Roll Left to Right (QC): 6 Sit to Lying (QC): 6 Lying to Sitting/Side of Bed(Q: 6 Sit to Stand (QC): 6 Chair/Zfn-va-Dlndm Xfer(QC): 6 Toilet Transfer (QC): 6 Gait Does the Patient Walk?: Yes Distance: 250 Gait Assistive Device: None Comments/Gait Description Ambulate with stable gait. Occasionally uses wall or surrounding furniture to steady himself. Pt reports this is normal. Balance Sitting Static: Normal Sitting Dynamic: Normal Standing Static: Good Standing Dynamic: Good Assessment/Needs Pt demonstrates normal strength, gait, and balance. He was able to move himself in and out of bed, don socks, and move about the room with good safety awareness. No sign of unitlateral weakness. Upper extremity strength and c oordination is symmetrical. Pt's functional mobility does not warrant physical or occupational therapy at this time. Rehab Potential: Good PT Jail Goals Supervisor [facility] House Goals PT Jail Goals Time Frame: April 13, 2021 Roll Left & Right (QC): 6 Sit to Lying (QC): 6 Lying-Sitting on Side/Bed(QC): 6 Sit to Stand (QC): 6 Chair/Oeg-nj-Hdpiu Xfer(QC): 6 Does the Patient Walk: Yes Walk 150 ft (QC): 6 PT Plan Treatment/Plan Treatment Plan: Discontinue PT Treatment Duration: April 13, 2021 Frequency: Estimated Hrs Per Day: .25 hour per day Patient and/or Family Agrees t: Yes seen one visit for assessment of strength, mobility, and safety Safety Risks/Education Patient Education: Gait Training Teaching Recipient: Patient Response to Teaching: Verbalize Understanding Discharge Recommendations Plan Pt seen one therapy session and discharged with goals met. Therapy Discharge Recommendati: Home & Family Equpiment Recommendations-D/C: None Barriers to Progress none Target Placement home Time/GCodes Time In: 1020 Time Out: 1040 Total Billed Treatment Time: 20 Total Billed Treatment visit, evalmoderate complexity ZURI TORRES PT April 13, 2021 10:36
[2021-04-13 11:35] VITALS: BP 118/76
--- NOTE | 2021-04-13 12:16 | Occ Therapy Progress Note ---
Therapy Progress Note OT order received. PT evaluated pt. and completed screen. No OT warranted at this time as pt. has no residual UE or ADL deficits that OT needs to address. Thank you for this referral. 1216 MOSHE HENRY OT April 13, 2021 12:16
--- NOTE | 2021-04-13 14:17 | Consultation-Cardiology ---
HPI-Cardiology Cardiology Consultation: Date of Consultation 04/13/21 Time Seen by a Provider: 13:15 Date of Admission Attending Physician Marilyn Arnold MD Admitting Physician Rai Colunga MD Consulting Physician DOT PEREZ MD, MA, FACP, FACC, FSCAI, CCDS Physician requesting consult: Dr Alfaro HPI: Chief Complaint: Reason for consultation: SVT HPI 75 yo man who was admitted with L-sided weakness that began on 04/12/21 afternoon and resolved by the am on . He does not report cp or palp or syncope or shortness of breath or n/v/d or swelling Review of Systems-Cardiology Review of Systems Constitutional: No malaise, No tiredness, No weight loss, No weight gain Eyes: No vision change Ears/Nose/Throat: No ear discharge, No nasal drainage, No recent hearing loss Respiratory: As described under HPI Cardiovascular: As described under HPI Gastrointestinal: As described under HPI Genitourinary: No dysuria, No hematuria Musculoskeletal: No back pain, No joint pain Skin: No rash, No ulcerations Psychiatric/Neurological: As described under HPI Hematologic: No bleeding abnormalities YTG-Ootfar-Curmso Hx Patient Social History Marrital Status: Employed/Student: retired Smoking Status: Current Everyday Smoker 2nd Hand Smoke Exposure: No Alcohol Use?: No Pt feels they are or have been: No Tobacco type used: Cigars, Cigarettes Immunizations Up To Date Date of Pneumonia Vaccine: Sep 21, 2015 Date of Influenza Vaccine: Jul 29, 2020 Past Medical History PMH As described under Assessment. Family Medical History Family Medical History: Twin brother had CAD, [place] and a cor stent a few years ago Allergies and Home Medications Allergies Coded Allergies: ketorolac (Unverified Allergy, Mild, 09/21/18) minocycline (Verified Allergy, Unknown, 09/21/18) Home Medications Aspirin 81 Mg Tab.chew, 81 MG PO DAILY, (Reported) Last Action: Reviewed Gabapentin 600 Mg Tablet, 600 MG PO DAILY, (Reported) Last Action: Reviewed Hydrocodone/Acetaminophen 1 Each Tablet, 1 EACH PO PRN, (Reported) TAKE 1 TABLET BY MOUTH EVERY 4 TO 6 HOURS NEEDED FOR PAIN Last Action: Reviewed Lisinopril 20 Mg Tablet, 1 TAB PO DAILY, (Reported) Last Action: Reviewed Metoprolol Succinate 100 Mg Tab.er.24h, 100 MG PO DAILY, (Reported) Last Action: Reviewed Morphine Sulfate 100 Mg Tablet.er, 100 MG PO Q8H, (Reported) Last Action: Reviewed Potassium Chloride 10 Meq Tab.er.prt, 10 MEQ PO BID, (Reported) Last Action: Reviewed Promethazine HCl 50 Mg Tablet, 50 MG PO Q6H PRN for NAUSEA/VOMITING-1ST LINE, (Reported) Last Action: Reviewed Rosuvastatin Calcium 20 Mg Tablet, 20 MG PO DAILY, (Reported) Last Action: Reviewed Tizanidine HCl 4 Mg Tablet, 4 MG PO Q8H PRN for MUSCLE SPASMS, (Reported) Last Action: Reviewed Patient Home Medication List Home Medication List Reviewed: Yes Physical Exam-Cardiology Physical Exam Vital Signs/I&O 04/13/21 04/13/21 04/13/21 04/13/21 04:06 07:00 07:47 08:00 Temp 36.4 36.2 Pulse 66 61 64 Resp 18 20 B/P (MAP) 103/71 (82) 133/87 (102) Pulse Ox 94 97 O2 Delivery Room Air Room Air Room Air 04/13/21 11:35 Temp 36.4 Pulse 60 Resp 20 B/P (MAP) 118/76 (90) Pulse Ox 94 O2 Delivery Room Air 04/13/21 00:00 Intake Total 1045 ml Balance 1045 ml Capillary Refill : Less Than 3 Seconds Constitutional: AAO x 3, well-developed, well-nourished HEENT: EOMI, hearing is well preserved; No xanthelasmas are seen Neck: carotid pulses are 2 + bilaterally, with good upstrokes Respiratory: No accessory muscle use; other (good, bilateral air entry) Cardiovascular: regular rate-rhythm, S1 and S2, systolic murmur (faint JAZMIN at card base) Gastrointestinal: No tender; soft; No guarding, No rebound; audible bowel sounds Extremities: No clubbing, No cyanosis, No significant edema Neurologic/Psychiatric: oriented x 3, other (moves all limbs equally at the time of this exam) Skin: warm/dry; No rash on exposed areas, No ulcerations on exposed areas Data Review Labs Laboratory Tests 04/12/21 16:40: White Blood Count 8.9, Red Blood Count 4.97, Hemoglobin 15.5, Hematocrit 45, Mean Corpuscular Volume 90, Mean Corpuscular Hemoglobin 31, Mean Corpuscular Hemoglobin Concent 35, Red Cell Distribution Width 14.1, Platelet Count 319, Mean Platelet Volume 9.3, Immature Granulocyte % (Auto) 1, Neutrophils (%) (Auto) 63, Lymphocytes (%) (Auto) 27, Monocytes (%) (Auto) 9, Eosinophils (%) (Auto) 1, Basophils (%) (Auto) 1, Neutrophils # (Auto) 5.6, Lymphocytes # (Auto) 2.4, Monocytes # (Auto) 0.8, Eosinophils # (Auto) 0.1, Basophils # (Auto) 0.1, Immature Granulocyte # (Auto) 0.0, Prothrombin Time 14.2, INR Comment 1.1, Activated Partial Thromboplast Time 25, D-Dimer 0.49, Sodium Level 139, Potassi um Level 3.9, Chloride Level 102, Carbon Dioxide Level 21, Anion Gap 16H, Blood Urea Nitrogen 15, Creatinine 0.93, Estimat Glomerular Filtration Rate > 60, BUN/Creatinine Ratio 16, Glucose Level 127H, Calcium Level 9.3, Corrected Calcium 9.4, Total Bilirubin 0.6, Aspartate Amino Transf (AST/SGOT) 16, Alanine Aminotransferase (ALT/SGPT) 15, Alkaline Phosphatase 50, Troponin I < 0.028, Total Protein 6.5, Albumin 3.9 04/12/21 17:18: Glucometer 127H 04/12/21 17:50: Urine Color AMBERH, Urine Clarity CLEAR, Urine pH 5.0, Urine Specific [place] >=1.030, Urine Protein 1+H, Urine Glucose (UA) NEGATIVE, Urine Ketones 1+H, Urine Nitrite NEGATIVE, Urine Bilirubin 2+H, Urine Urobilinogen 2.0, Urine Leukocyte Esterase NEGATIVE, Urine RBC (Auto) NEGATIVE, Urine RBC NONE, Urine WB C 0-2, Urine Crystals PRESENTH, Urine Amorphous Sediment MOD JUS URATESH, Urine Bacteria NEGATIVE, Urine Casts PRESENT, Urine Hyaline Casts 2-5H, Urine Mucus LARGEH, Urine Culture Indicated NO 04/13/21 04:40: Sodium Level 139, Potassium Level 3.8, Chloride Level 103, Carbon Dioxide Level 22, Anion Gap 14, Blood Urea Nitrogen 17, Creatinine 0.81, Estimat Glomerular Filtration Rate > 60, BUN/Creatinine Ratio 21, Glucose Level 124H, Calcium Level 9.3, Triglycerides Level 192H, Cholesterol Level 161, LDL Cholesterol Direct 106, VLDL Cholesterol 38, HDL Cholesterol 33L Laboratory Tests 04/12/21 16:40 04/13/21 04:40 A/P-Cardiology Assessment/Admission Diagnosis SSS - Episodes of PAF/Fl with vent response around 150 bpm documented during this admission. Pauses of less than 1.5 seconds when breaking from PAF/Fl to NSR TIA resulting in transient L-sided weakness on 04/12/21 Mild mod CAD and LVEF 70% on card cath of January 2018 Minimal carotid arterial disease on CT of head neck on 04/12/21 Discussion and Recomendations * Apixaban for stroke prophylaxis if approved by the Med Svce * D/c Plavix (to reduce risk of bleeding) * BB to control vent rate during PAF/Fl * Monitor labs * Check TSH * Echo * I discussed his case with Dr Alfaro on the phone this am Clinical Quality Measures Stroke: Date of last known well: April 11, 2021 DOT PEREZ MD FACP FACC CCDS April 13, 2021 14:17
[2021-04-13 16:00] VITALS: BP 111/76
[2021-04-13] MEDS ORDERED: PROMETHAZINE 25 MG (PHENERGAN) TAB PO PRN (17:00)
[2021-04-13] MEDS: APIXABAN 5 MG (ELIQUIS) TABLET PO SCH (19:59)
[2021-04-13] MEDS: ROSUVASTATIN 20 MG (CRESTOR) TABLET PO SCH (19:59)
[2021-04-13 20:00] VITALS: BP 149/86
[2021-04-14] VITALS: BP 134/74
[2021-04-14 03:54] VITALS: BP 155/83
[2021-04-14] MEDS: HYDROcodone/APAP 5 MG/325 MG (LORTAB) TAB PO PRN ×2 (04:25→09:57)
[2021-04-14] MEDS: CATHETER FLUSH 10 ML SYR IV SCH (04:27)
[2021-04-14 08:00] VITALS: BP 165/82
[2021-04-14] MEDS ORDERED: GABAPENTIN 600 MG (NEURONTIN) TAB PO SCH (09:00)
[2021-04-14] MEDS ORDERED: PANTOPRAZOLE 20 MG TABLET (PROTONIX) PO SCH (09:00)
[2021-04-14] MEDS: lisINopril 20 MG (PRINIVIL) TABLET PO SCH (09:56)
[2021-04-14] MEDS: ASPIRIN 81 MG CHEW (CHILDREN'S ASA) PO SCH (09:56)
[2021-04-14] MEDS: meTOprolol SUCCINATE 100 MG (TOPROL XL) TAB PO SCH (09:56)
[2021-04-14] MEDS: APIXABAN 5 MG (ELIQUIS) TABLET PO SCH (09:57)
--- NOTE | 2021-04-14 10:15 | Diagnostic Imaging Report ---
PROCEDURE: MR imaging of the brain without contrast. TECHNIQUE: Multiplanar, multisequence MR imaging of the brain was performed without contrast. DATE: April 14, 2021. COMPARISON: CT angiography head and neck April 12, 2021. CT head without contrast April 12, 2021. HISTORY: 75-year-old male, left-sided weakness. FINDINGS: There is diffusion restriction involving the right periventricular white matter and right lateral basal ganglia with signal changes also present on the T2 and FLAIR sequences, consistent with areas of acute infarct which are not within a few hours of age. There is no additional site of diffusion restriction. There is no abnormal intracranial susceptibility. There is proportional prominence of the ventricles and additional CSF spaces, consistent with moderate cerebral volume loss. There are T2 and FLAIR hyperintense signal changes in the periventricular and subcortical white matter which are nonspecific but most likely relate to moderate to severe changes of chronic small vessel ischemic disease. There are also chronic microvascular changes present within the jim. There is no mass effect or midline shift. The frontal sinuses are hypoplastic. There is mild partial opacification within the left mastoid air cells. IMPRESSION: 1. Acute infarcts not within a few hours of age involving the right periventricular white matter and right lateral basal ganglia. 2. Moderate cerebral volume loss with moderate to severe changes of chronic small vessel ischemic disease. Dictated by: Dictated on workstation # [id number]
--- NOTE | 2021-04-14 11:07 | Progress Note - Hospitalist ---
Subjective HPI/CC On Admission Date Seen by Provider: Apr 14, 2021 Pt is a 75yoCM with a PMH of HTN, HLD, chornic back pain on chronic narcotics, BPH, tobacco abuse who presented to the ER due to left sided weakness. He reports he was feeling in his usual health until 830AM yesterday when he was working in the garage and his left arm wouldn't move. He then felt weak all over and went inside. His symptoms resolved briefly but recurred in the afternoon prompting him to seek evaluation in the ER. He was relucant to tell me this part but his family states he had slurred speech, a facial droop, and left sided weakness then. He had a CT and CTA of his head that were both negative and by the end fo his ER stay his symptoms mostly resolved. He was admitted for stroke evaluation. This morning he reports that his symptoms have completely resolved and his family confirms this. He had no complaints. Objective Exam Vital Signs Vital Signs Date Time Temp Pulse Resp B/P (MAP) Pulse Ox O2 Delivery O2 Flow Rate FiO2 04/14/21 08:02 Room Air 04/14/21 08:00 36.4 104 18 165/82 (109) 95 Capillary Refill : Less Than 3 Seconds Results/Procedures Lab Patient resulted labs reviewed. Imaging: Reviewed Imaging Report Clinical Quality Measures Stroke: Date of last known well: April 11, 2021 ELLA MAK DO Apr 14, 2021 11:07
[2021-04-14] MEDS ORDERED: APIX5TAB PO (11:45)
--- NOTE | 2021-04-14 11:45 | Discharge Summary ---
Discharge Summary Hospital Course Was the Problem List Reviewed?: Yes Problems/Dx: (1) CVA (cerebral vascular accident) (2) Atrial flutter (3) Left-sided weakness Status: Acute Hospital Course Date of Admission: April 12, 2021 at 19:11 Admission Diagnosis : Family Physician/Provider: Rai Colunga MD Date of Discharge: 04/14/21 Discharge Diagnosis: CVA w/resolution of left sided weakness, A flutter on tely placed on OAC Hospital Course: Hospital Course: Pt had a short hospital course after he was admitted for left sided weakness that resolved quickly. Eliquis was started after a flutter documented by Dr. Dougherty. PT and OT were consulted but he did not need any therapy since everything had resolved. MRI confirmed very small micro infarcts likely emboli from heart and Eliquis was sent into [facility]. Pt was ambulating well and did not require rehab at discharge. Labs and Pending Lab Test: Laboratory Tests 04/14/21 04:24: Thyroid Stimulating Hormone (TSH) 1.70 Home Meds Active Eliquis (Apixaban) 5 Mg Tablet 5 Mg PO BID Reported Potassium Chloride 10 Meq Tab.er.prt 10 Meq PO BID Gabapentin 600 Mg Tablet 600 Mg PO DAILY Omeprazole 20 Mg Capsule.dr 20 Mg PO Metoprolol Succinate 100 Mg Tab.er.24h 100 Mg PO DAILY Hydrocodone-Acetamin 10-325 mg (Hydrocodone/Acetaminophen) 1 Each Tablet 1 Each PO PRN TAKE 1 TABLET BY MOUTH EVERY 4 TO 6 HOURS NEEDED FOR PAIN Aspirin 81 Mg Tab.chew 81 Mg PO DAILY Promethazine HCl 50 Mg Tablet 50 Mg PO Q6H PRN Morphine Sulfate ER (Morphine Sulfate) 100 Mg Tablet.er 100 Mg PO Q8H Tizanidine HCl 4 Mg Tablet 4 Mg PO Q8H PRN Rosuvastatin Calcium 20 Mg Tablet 20 Mg PO DAILY Lisinopril 20 Mg Tablet 1 Tab PO DAILY Assessment/Pt Instructions PCP 1 week Discharge Planning: <30 minutes discharge planning Discharge Instructions Discharge Diet: No Restrictions Activity as Tolerated: Yes Discharge Physical Examination Vital Signs Vital Signs Date Time Temp Pulse Resp B/P (MAP) Pulse Ox O2 Delivery O2 Flow Rate FiO2 04/14/21 08:02 Room Air 04/14/21 08:00 36.4 104 18 165/82 (109) 95 General Appearance: No Apparent Distress, WD/WN Respiratory: Lungs Clear Cardiovascular: Regular Rate, Rhythm Neurologic/Psychiatric: Alert, Oriented x3, No Motor/Sensory Deficits, Normal Mood/Affect Allergies: Coded Allergies: ketorolac (Unverified Allergy, Mild, 09/21/18) minocycline (Verified Allergy, Unknown, 09/21/18) Discharge Summary Date of Admission April 12, 2021 at 19:11 Date of Discharge Discharge Date: Apr 14, 2021 Admission Diagnosis left sided weakness Clinical Quality Measures Stroke: Date of last known well: April 11, 2021 ELLA MAK DO Apr 14, 2021 11:45
--- NOTE | 2021-04-14 12:09 | Progress Note - Cardiology ---
Cardiology SOAP Progress Note Subjective: Sitting up on the side of the bed Wants to go home No c/o CP, SOB or palpitations Objective: I&O/Vital Signs 04/14/21 04/14/21 04/14/21 04/14/21 01:00 03:54 07:00 08:00 Temp 36.6 36.4 Pulse 66 93 60 104 Resp 17 18 B/P (MAP) 155/83 (107) 165/82 (109) Pulse Ox 97 95 O2 Delivery Room Air Room Air 04/14/21 08:02 O2 Delivery Room Air 04/14/21 00:00 Intake Total 1510 ml Balance 1510 ml Weight (Pounds): 208 Weight (Ounces): 0.0 Weight (Calculated Kilograms): 94.779984 Constitutional: AAO x 3, well-developed, well-nourished Respiratory: No accessory muscle use; other (good, bilateral air entry) Cardiovascular: regular rate-rhythm, S1 and S2, systolic murmur (faint JAZMIN at card base) Gastrointestional: No tender; soft; No guarding, No rebound; audible bowel sounds Extremities: No clubbing, No cyanosis, No significant edema Neurologic/Psychiatric: oriented x 3, other (moves all limbs equally at the time of this exam) Skin: warm/dry; No rash on exposed areas, No ulcerations on exposed areas Results/Procedures: Labs Laboratory Tests 04/14/21 04:24: Thyroid Stimulating Hormone (TSH) 1.70 A/P: Assessment: SSS - Episodes of PAF/Fl with vent response around 150 bpm documented during this admission. Pauses of less than 1.5 seconds when breaking from PAF/Fl to NSR TIA resulting in transient L-sided weakness on 04/12/21 Mild mod CAD and LVEF 70% on card cath of January 2018 Minimal carotid arterial disease on CT of head neck on 04/12/21 Echocardiogram of 04-13-21: - LVEF 65-70%; LA mod dilated; Mild MR; PASP 25-30mmHg TSH of 04-14-21 WNL Plan: * Apixaban for stroke prophylaxis if approved by the Med Svce * D/c Plavix (to reduce risk of bleeding) * BB to control vent rate during PAF/Fl * Monitor labs * Continue current medication regimen * Out pt f/u in 2 weeks Clinical Quality Measures Stroke: Date of last known well: April 11, 2021 AZUL ASHER Apr 14, 2021 12:09
== END 2021-04-14 12:30 | disposition home or self-care (01) ==
LOC: EDUNIT# 16:07 → ER 16:09 → 4TH 19:11
PROVIDERS: ADMIT Internal Medicine; ATTEND Internal Medicine
DX: I63.9 Cerebral infarction, unspecified (principal); I48.92 Unspecified atrial flutter; I49.5 Sick sinus syndrome; I77.9 Disorder of arteries and arterioles, unspecified; I25.10 Atherosclerotic heart disease of native coronary artery without angina pectoris; I47.1 Supraventricular tachycardia; I10 Essential (primary) hypertension; K59.09 Other constipation; E78.00 Pure hypercholesterolemia, unspecified; E78.5 Hyperlipidemia, unspecified; M54.9 Dorsalgia, unspecified; G89.29 Other chronic pain; R53.1 Weakness; F17.210 Nicotine dependence, cigarettes, uncomplicated; Z79.82 Long term (current) use of aspirin; Z79.891 Long term (current) use of opiate analgesic; Z79.899 Other long term (current) drug therapy; Z83.3 Family history of diabetes mellitus
CPT/HCPCS: 36415; 70450; 70496; 70498; 70551; 71045; 80048; 80053; 80061; 81000; 82947; 84443; 84484; 85025; 85379; 85610; 85730; 93005; 93041; 93306; G0378

== ENCOUNTER → 2021-06-09 | Outpatient (CLI) | payer MEDICARE, OTHER ==
[~2021-06-09] MED LIST changes: +APIX5TAB PO; +GBPN600T PO; +HYDR-3820 PO; +LINA72CA PO; +MTP100TCR PO; +OMEP20CA18 PO; +POTA10TA36 PO; +REGADENOSON 0.4 MG/5 ML SYR (LEXISCAN) IV ONE
[2021-06-09 09:31] VITALS: BP 160/111
--- NOTE | 2021-06-09 15:01 | STRESS TEST ---
DATE OF SERVICE: 06/09/2021 RESTING AND POST REGADENOSON TECHNETIUM-99M TETROFOSMIN SPECT CT IMAGING ORDERING PHYSICIAN: Dr. Dougherty. PRIMARY PHYSICIAN: Dr. Colunga. CLINICAL DIAGNOSIS: Chest discomfort. Baseline images were carried out after injection of 10.4 mCi of technetium-99m Tetrofosmin. This was followed by 0.4 mg regadenoson and 30.9 mCi of technetium-99m Tetrofosmin for stress imaging. The electrocardiogram showed sinus rhythm at baseline and it did not change significantly with the regadenoson infusion. The patient tolerated the procedure well. Review of images at rest and following stress indicates a small transient basal lateral perfusion defect. Gated images show normal global left ventricular systolic function with normal regional wall motion. Left ventricular ejection fraction is calculated to be 63%. TID is absent (0.87). Left ventricular end diastolic volume is 40 mL. CONCLUSIONS: 1. This study is suggestive of a small amount of lateral wall ischemia. 2. Normal regional wall motion. 3. Normal global left ventricular systolic function with a calculated ejection fraction of 63%. Job ID: [id number] DocumentID: [id number] Dictated Date: 06/09/2021 13:51:35 Electrical Assembly Supervisor Date: 06/09/2021 15:00:58 Dictated By: DOT DOUGHERTY MD, MA, FACP, FACC,
== END ==
LOC: CARD 07:49
PROVIDERS: ATTEND Internal Medicine Cardiovascular Disease
DX: R07.89 Other chest pain (principal)
CPT/HCPCS: 78452; 93017; A9502

== ENCOUNTER 2021-06-23 07:52 | Day surgery (SDC) | payer MEDICARE, OTHER ==
[~2021-06-23] VITALS: Ht 170 cm; Wt 101.0 kg
[2021-06-23] VITALS (9 sets, daily range): BP systolic 141–163; BP diastolic 74–95
[~2021-06-23 07:52] MED LIST changes: -REGADENOSON 0.4 MG/5 ML SYR (LEXISCAN) IV ONE
[2021-06-23] MEDS ORDERED: NS IV 1000 ML 1,000 ML ONE (07:58)
[2021-06-23] MEDS ORDERED: LIDOCAINE 1% INJ 20 ML 20 ML VIAL ONE (07:58)
[2021-06-23] MEDS ORDERED: HEParin (CATH LAB) 2,000 ML IV ONE (07:58)
[2021-06-23] MEDS ORDERED: NS IV 1000 ML 1,000 ML IV SCH ×2 (08:00→11:45)
[2021-06-23 08:23] LABS: HEMATOCRIT 48 % (40-54); HEMOGLOBIN 16.4 g/dL (13.3-17.7); MEAN CORPUSCULAR HEMOGLOBIN 32 pg (25-34); MEAN CORPUSCULAR HGB CONC 34 g/dL (32-36); MEAN CORPUSCULAR VOLUME 93 fL (80-99); MEAN PLATELET VOLUME 9.6 fL (9.0-12.2); PLATELET COUNT 316 10^3/uL (130-400); WHITE BLOOD COUNT 10.1 10^3/uL (4.3-11.0)
[2021-06-23 08:36] LABS: PROTHROMBIN TIME PATIENT 13.2 SEC (12.2-14.7)
[2021-06-23 08:42] LABS: ALBUMIN 3.9 GM/DL (3.2-4.5); BILIRUBIN,TOTAL 0.8 MG/DL (0.1-1.0); CALCIUM 9.5 MG/DL (8.5-10.1); CREATININE SERUM 0.84 MG/DL (0.60-1.30); TOTAL PROTEIN 7.3 GM/DL (6.4-8.2)
[2021-06-23 08:45] LABS: POTASSIUM 4.2 MMOL/L (3.6-5.0)
[2021-06-23] MEDS ORDERED: GBPN600T PO (09:17)
[2021-06-23] MEDS ORDERED: PROM25TA14 PO (09:17)
[2021-06-23] MEDS ORDERED: CLN.1T PO (09:17)
[2021-06-23] MEDS ORDERED: LISI40TA9 PO (09:17)
[2021-06-23] MEDS ORDERED: LINA72CA PO (09:17)
[2021-06-23] MEDS ORDERED: HYDR-3820 PO (09:17)
[2021-06-23] MEDS ORDERED: APIX5TAB PO (09:17)
[2021-06-23] MEDS ORDERED: MTP100TCR PO (09:17)
--- NOTE | 2021-06-23 11:33 | Cardiac Procedure Note-CS/ASA ---
Pre-Procedure Note Pre-Op Procedure Note H&P Reviewed The H&P was reviewed, patient examined and no changes noted. Date H&P Reviewed: Jun 23, 2021 Time H&P Reviewed: 10:30 Conscious Sedation Pre-Proced Time 10:30 ASA Score 2 For ASA 3 and 4: Consider anesthesia and medical clearance. Also, for patients with a history of failed moderate sedation consider anesthesia. Airway Lungs Heart ASA score ASA 1: a normal healthy patient ASA 2: a patient with a mild systemic disease (mid diabetes, controlled hypertension, obesity ASA 3: a patient with a severe systemic disease that limits activity (angina, COPD, prior Myocardial infarction) ASA 4: a patient with an incapacitating disease that is a constant threat to life (CHF, renal failure) ASA 5: a moribund patient not expected to survive 24 hrs. (ruptured aneurysm) ASA 6: a declared brain- patient whose organs are being harvested. For emergent operations, add the letter E after the classification Mallampati Classification Grade 2 Sedation Plan Analgesia, Amnesia, Plan communicated to team members, Discussed options with patient/fam, Discussed risks with patient/fam The patient is an appropriate candidate to undergo the planned procedure, sedation, and anesthesia. The patient immediately re-assessed prior to indication. DOT PEREZ MD FACP FAC CCDS Jun 23, 2021 11:33
[2021-06-23] MEDS ORDERED: ASPI-999 PO (11:39)
--- NOTE | 2021-06-23 11:40 | Discharge Inst-Cardiology ---
Discharge Inst-Cardiac Discharge Medications New Medications: Aspirin (Aspirin) 81 Mg Tab.chew 81 MG PO DAILY, #30 TAB 5 Refills Continued Medications: Apixaban (Eliquis) 5 Mg Tablet 5 MG PO BID, TAB Gabapentin (Gabapentin) 600 Mg Tablet 600 MG PO HS, TAB Hydrocodone/Acetaminophen (Hydrocodone-Acetamin 10-325 mg) 1 Each Tablet 1 EACH PO Q4H PRN for PAIN-MODERATE (5-7), TAB Linaclotide (Linzess) 72 Mcg Capsule 72 MCG PO DAILY, CAP Lisinopril (Lisinopril) 40 Mg Tablet 40 MG PO DAILY, TAB LAST FILLED 02/10/2021 #30 30 DAY SUPPLY Metoprolol Succinate (Metoprolol Succinate) 100 Mg Tab.er.24h 100 MG PO DAILY, TAB Morphine Sulfate (Morphine Sulfate ER) 100 Mg Tablet.er 100 MG PO Q8H PRN for PAIN-SEVERE (8-10), TAB Omeprazole (Omeprazole) 20 Mg Capsule.dr 20 MG PO DAILY, CAP Potassium Chloride (Potassium Chloride) 10 Meq Tab.er.prt 10 MEQ PO BID LAST FILLED 01/03/21 #180 90 DAY SUPPLY Promethazine HCl (Promethazine Tablet) 25 Mg Tablet 25 MG PO Q6H PRN for NAUSEA/VOMITING-1ST LINE, TAB Rosuvastatin Calcium (Rosuvastatin Calcium) 20 Mg Tablet 20 MG PO DAILY, TAB DOT PEREZ MD FACP FAC CCDS Jun 23, 2021 11:40
--- NOTE | 2021-06-23 11:41 | Discharge Inst-Post CATH ---
Discharge Inst-CATH/EP Post Cardiac Cath/EP D/C Inst Follow Up/Plan F/u [facility] Dr Dougherty next week ACTIVITY * Go Home directly and rest. * Limit activity of the leg (or wrist if it was used) for 7 days including aerobics, swimming, jogging, bicycling, etc. * Restrict stair-climbing for 7 days if possible, if not, climb up with your non -cath leg, then bring together on the same step. * Avoid lifting, pushing, pulling or excessive movement of the affected extr emity for 7 days. * Customary sexual activity may be resumed after 2 days-use caution not to use a position that strains or causes pain to the affected extremity. * No driving for 24 hours. * NO SMOKING. * Avoid straining for bowel movements for 7 days. * Gentle walking on level ground is allowed. * Returning to work will depend on the type of procedure and the results. Your doctor will discuss this with you. CALL YOUR DOCTOR FOR ANY OF THE FOLLOWING: *If bleeding from the puncture site occurs- Apply gentle pressure to site with clean cloth and call your doctor or EMS. * If a knot or lump forms under the skin, increases in size, or causes pain. * If bruising appears to be worsening or moving further down your leg instead of disappearing. * Temperature above 101 F. CARE OF YOUR GROIN INCISION; * Bruising or purple discoloration of the skin near the puncture site is common. * You may shower only, no bathtub bathing for 5 days. Be careful to avoid slipping as your leg may feel stiff. * If a closure device was used on your femoral artery, please see the attached guide regarding care of the device and your leg. * Leave dressing on FOR 24 hours. CARE OF YOUR WRIST INCISION; * Bruising or purple discoloration of the skin near the puncture site is common. * You may shower. * DO NOT submerge wrist. * Leave dressing on FOR 24 hours. DOT DOUGHERTY MD [facility] CCDS Jun 23, 2021 11:41
[2021-06-23] MEDS ORDERED: PATIENT MAY USE OWN MEDS, ALL PO SCH (11:45)
[2021-06-23] MEDS ORDERED: ASPIRIN 81 MG CHEW (CHILDREN'S ASA) ONE (11:55)
--- NOTE | 2021-06-23 12:40 | CARDIAC CATHETERIZATION ---
DATE OF SERVICE: 06/23/2021 CARDIAC CATHETERIZATION REPORT The patient is a 75-year-old gentleman, who has had shortness of breath. Myocardial perfusion imaging study was indicative of a small amount of lateral ischemia. Cardiac catheterization was carried out after having obtained an informed consent. DESCRIPTION OF PROCEDURE: He was brought to the cardiac catheterization laboratory in a fasting state. Right groin was prepared and draped in the usual sterile fashion. Lidocaine 1% was used for local anesthesia. Modified Seldinger technique was used to advance a 5-German sheath in right femoral artery, 5-German JL4 catheter and right 5-German JL3.5 catheter was used for angiography of the left coronary artery. There was not resulting in selective engagement. We then used a 5-German MP2 catheter to selectively engage the left coronary artery and perform left ventricular angiography. We used a 5-German JR4 catheter for right coronary angiography. We used a 5-German pigtail catheter for left heart catheterization and left ventricular angiography. Angiography of the right femoral artery was carried out through the sheath and Mynx was used to achieve hemostasis. He tolerated the procedure well. HEMODYNAMICS: Left ventricular end-diastolic pressure following coronary angiography was 19 mmHg. There is no significant pressure gradient on pullback across the aortic valve. CORONARY ANGIOGRAPHY: Diffuse coronary calcification is present in the proximal portion of the left coronary system. The left main coronary artery has approximately 40% stenosis in its proximal portion. The left anterior descending has diffused moderate disease in its proximal portion. The left circumflex artery does not exhibit significant disease. Right coronary artery is nondominant and does not exhibit significant disease. LEFT VENTRICULAR ANGIOGRAPHY: Left ventricular angiography was carried out in the right anterior oblique projection. Global left ventricular systolic function is normal. No regional wall motion abnormality is seen. Left ventricular ejection fraction approximately 60%. CONCLUSIONS: 1. Coronary artery disease primarily consisting of 40% proximal stenosis in the left main and diffuse moderate disease of the proximal left anterior descending. 2. Normal global left ventricular systolic function with ejection fraction approximately 60%. 3. Left ventricular end-diastolic pressure 19 mmHg. DISCUSSION AND RECOMMENDATIONS: Based on these findings, it appears appropriate to continue a conservative approach at this time. We will continue his current regimen and advised close outpatient clinical followup for medication adjustment and continuing formulation of a treatment plan. Job ID: [id number] DocumentID: [id number] Dictated Date: 06/23/2021 12:23:31 Payroll Coordinator Date: 06/23/2021 12:38:54 Dictated By: DOT PEREZ MD, MA, FACP, FACC,
== END 2021-06-23 14:40 | disposition home or self-care (01) ==
LOC: CATH 07:52 → SDC 12:00 → CATH 14:40
PROVIDERS: ATTEND Internal Medicine Cardiovascular Disease
DX: I25.10 Atherosclerotic heart disease of native coronary artery without angina pectoris (principal); I65.23 Occlusion and stenosis of bilateral carotid arteries; I49.5 Sick sinus syndrome; I48.0 Paroxysmal atrial fibrillation; R94.39 Abnormal result of other cardiovascular function study; R07.89 Other chest pain; Z79.82 Long term (current) use of aspirin; Z79.01 Long term (current) use of anticoagulants; Z79.899 Other long term (current) drug therapy; Z79.891 Long term (current) use of opiate analgesic; Z87.891 Personal history of nicotine dependence; Z86.73 Personal history of transient ischemic attack (TIA), and cerebral infarction without residual deficits
CPT/HCPCS: 80053; 80061; 85027; 85610; 85730; 87081; 93458; C1760; C1894; 36415

== ENCOUNTER → 2021-08-24 | Outpatient (CLI) | payer MEDICARE, OTHER ==
[~2021-08-24] MED LIST changes: +CLN.1T PO; +LISI40TA9 PO; +PROM25TA14 PO
--- NOTE | 2021-08-24 17:18 | Diagnostic Imaging Report ---
INDICATION: Left hip pain FINDINGS Two views of the left hip show no fracture, dislocation or other acute abnormalities. There are some calcifications in the buttocks which may be from previous injections. IMPRESSION: Unremarkable left hip. Dictated by: Dictated on workstation # [id number]
== END ==
LOC: RAD 16:28
DX: M25.552 Pain in left hip (principal)
CPT/HCPCS: 73502

== ENCOUNTER 2023-10-18 06:41 | Day surgery (SDC) | payer MEDICARE, OTHER ==
[2023-10-18] VITALS (12 sets, daily range): BP systolic 89–148; BP diastolic 52–92
[~2023-10-18] VITALS: Ht 170.2 cm; Wt 89.9 kg
[~2023-10-18 06:41] MED LIST changes: -EZET10TA17 PO; +EZET10TA83 PO; +NEBI5TAB2 PO; +POTA-177 PO; -POTA10TA36 PO; -ROSU20TA32 PO; +ROSU20TA73 PO; +TIZA-186 PO; -TIZA4TAB4 PO
[2023-10-18] MEDS ORDERED: LIDOCAINE 1% INJ 20 ML VIAL ONE (06:51)
[2023-10-18] MEDS ORDERED: HEParin (CATH LAB) 2,000 ML IV ONE (06:52)
[2023-10-18] MEDS ORDERED: NS IV 1000 ML 1,000 ML ONE (06:52)
[2023-10-18] MEDS ORDERED: NS IV 1000 ML 1,000 ML IV SCH ×2 (07:00→10:15)
[2023-10-18 07:13] LABS: HEMATOCRIT 44 % (40-54); HEMOGLOBIN 14.9 g/dL (13.3-17.7); MEAN CORPUSCULAR HEMOGLOBIN 32 pg (25-34); MEAN CORPUSCULAR HGB CONC 34 g/dL (32-36); MEAN CORPUSCULAR VOLUME 93 fL (80-99); PLATELET COUNT 264 10^3/uL (130-400); WHITE BLOOD COUNT 7.9 10^3/uL (4.3-11.0)
[2023-10-18 07:26] LABS: POTASSIUM 3.4 MMOL/L (3.6-5.0)
[2023-10-18 07:27] LABS: ALBUMIN 3.8 GM/DL (3.2-4.5)
[2023-10-18 07:28] LABS: CALCIUM 9.1 MG/DL (8.5-10.1)
[2023-10-18 07:29] LABS: TOTAL PROTEIN 6.2 GM/DL (6.4-8.2)
[2023-10-18 07:31] LABS: BILIRUBIN,TOTAL 0.7 MG/DL (0.1-1.0)
[2023-10-18 07:33] LABS: CREATININE SERUM 0.73 MG/DL (0.60-1.30)
[2023-10-18 07:34] LABS: PROTHROMBIN TIME PATIENT 13.8 SEC (12.2-14.7)
[2023-10-18] MEDS ORDERED: fentaNYL INJECTION 100 MCG/2 ML VIAL ONE (07:52)
[2023-10-18] MEDS ORDERED: MIDAZOLAM INJ 5 MG/5 ML VIAL ONE (07:53)
[2023-10-18] MEDS ORDERED: PROM25TA14 PO (08:20)
[2023-10-18] MEDS ORDERED: FURO20TA4 PO (08:20)
[2023-10-18] MEDS ORDERED: CLN.1T PO (08:20)
[2023-10-18] MEDS ORDERED: CLOP75TA28 PO (08:20)
[2023-10-18] MEDS ORDERED: POTASSIUM CHLORIDE PO (08:22)
[2023-10-18] MEDS ORDERED: HEParin 1000 UNIT/ML (10ML VIAL) FOR BOLUS ONE (09:31)
--- NOTE | 2023-10-18 10:10 | Cardiac Procedure Note-CS/ASA ---
Pre-Procedure Note Pre-Op Procedure Note Date of Available H&P: Oct 12, 2023 Date H&P Reviewed: Oct 18, 2023 Time H&P Reviewed: 08:45 History & Physical: H&P Reviewed, No changes noted Moderate Sedation PreProcedure ASA Score 3 Airway Lungs Heart ASA score ASA 1: a normal healthy patient ASA 2: a patient with a mild systemic disease (mid diabetes, controlled hypertension, obesity ASA 3: a patient with a severe systemic disease that limits activity (angina, COPD, prior Myocardial infarction) ASA 4: a patient with an incapacitating disease that is a constant threat to life (CHF, renal failure) ASA 5: a moribund patient not expected to survive 24 hrs. (ruptured aneurysm) ASA 6: a declared brain- patient whose organs are being harvested. For emergent operations, add the letter E after the classification Mallampati Classification Grade 2 Sedation Plan Analgesia, Amnesia, Plan communicated to team members The patient is an appropriate candidate to undergo the planned procedure, sedation, and anesthesia. The patient immediately re-assessed prior to indication. DOT PEREZ MD FACP FAC CCDS Oct 18, 2023 10:10
[2023-10-18] MEDS ORDERED: ASPI-999 PO (10:14)
--- NOTE | 2023-10-18 10:14 | Discharge Inst-Cardiology ---
Discharge Inst-Cardiac Discharge Medications New Medications: Aspirin (Aspirin) 81 Mg Tab.chew 81 MG PO DAILY for 90 Days, #90 TAB 3 Refills Continued Medications: Clonidine HCl (Clonidine HCl) 0.1 Mg Tablet 0.1 MG PO DAILY PRN for BLOOD PRESSURE, TAB Clopidogrel Bisulfate (Clopidogrel) 75 Mg Tablet 75 MG PO DAILY, TAB LAST FILLED 03/29/2023 #90 90 DAY SUPPLY Furosemide (Furosemide) 20 Mg Tablet 20 MG PO DAILY, TAB Hydrocodone/Acetaminophen (Hydrocodone-Acetamin 10-325 mg) 1 Each Tablet 1 EACH PO Q4H PRN for PAIN-MODERATE (5-7), TAB Linaclotide (Linzess) 72 Mcg Capsule 72 MCG PO DAILY, CAP Lisinopril (Lisinopril) 40 Mg Tablet 40 MG PO DAILY, TAB Metoprolol Succinate (Metoprolol Succinate) 100 Mg Tab.er.24h 100 MG PO DAILY, TAB Morphine Sulfate (Morphine Sulfate ER) 100 Mg Tablet.er 100 MG PO BID PRN for PAIN-SEVERE (8-10), TAB Omeprazole (Omeprazole) 20 Mg Capsule.dr 20 MG PO DAILY, CAP [Potassium Chloride] () 20MEQ/15ML 10 ML PO DAILY Promethazine HCl (Promethazine Tablet) 25 Mg Tablet 25 MG PO Q6H PRN for NAUSEA/VOMITING-1ST LINE, TAB Rosuvastatin Calcium (Rosuvastatin Calcium) 20 Mg Tablet 20 MG PO DAILY, TAB LAST FILLED 03/29/2023 #90 90 DAY SUPPLY DOT PEREZ MD [facility] Oct 18, 2023 10:14
[2023-10-18] MEDS ORDERED: PATIENT MAY USE OWN MEDS, ALL PO SCH (10:15)
[2023-10-18] MEDS ORDERED: POTASSIUM CHLORIDE 20 MEQ TABLET PO ONE (10:15)
--- NOTE | 2023-10-18 10:15 | Discharge Inst-Post CATH ---
Discharge Inst-CATH/EP Post Cardiac Cath/EP D/C Inst Follow Up/Plan F/u with Dr Dougherty in 4 - 6 weeks ACTIVITY * Go Home directly and rest. * Limit activity of the leg (or wrist if it was used) for 7 days including aerobics, swimming, jogging, bicycling, etc. * Restrict stair-climbing for 7 days if possible, if not, climb up with your non-cath leg, then bring together on the same step. * Avoid lifting, pushing, pulling or excessive movement of the affected extremity for 7 days. * Customary sexual activity may be resumed after 2 days-use caution not to use a position that strains or causes pain to the affected extremity. * No driving for 24 hours. * NO SMOKING. * Avoid straining for bowel movements for 7 days. * Gentle walking on level ground is allowed. * Returning to work will depend on the type of procedure and the results. Your doctor will discuss this with you. CALL YOUR DOCTOR FOR ANY OF THE FOLLOWING: *If bleeding from the puncture site occurs- Apply gentle pressure to site with clean cloth and call your doctor or EMS. * If a knot or lump forms under the skin, increases in size, or causes pain. * If bruising appears to be worsening or moving further down your leg instead of disappearing. * Temperature above 101 F. CARE OF YOUR GROIN INCISION; * Bruising or purple discoloration of the skin near the puncture site is common. * You may shower only, no bathtub bathing for 5 days. Be careful to avoid slipping as your leg may feel stiff. * If a closure device was used on your femoral artery, please see the attached guide regarding care of the device and your leg. * Leave dressing on FOR 24 hours. CARE OF YOUR WRIST INCISION; * Bruising or purple discoloration of the skin near the puncture site is common. * You may shower. * DO NOT submerge wrist. * Leave dressing on FOR 24 hours. DOT DOUGHERTY MD [facility] CCDS Oct 18, 2023 10:15
--- NOTE | 2023-10-18 10:29 | Cardiac Cath Report ---
CARDIAC CATHETERIZATION DATE OF PROCEDURE: 10-18-23 INDICATION: CAD, chest discomfort, shortness of breath HISTORY: The patient is a 78 year old male with known CAD and chest discomfort and shortness of breath. PROCEDURES PERFORMED: 1. Cor angio; 2. LHC and LV angio; 3. IVUS of LMCA PROCEDURE DESCRIPTION: After informed consent and in the fasting state, left heart catheterization was performed through the R groin artery utilizing a 5 [place] system by percutaneous approach. JR4 for RCA; JL4 for LCA; pigtail for LHC and LV angio. For IVUS procedure, see below. Femoral artery angio through the sheath and Mynx closure after sheath removal HEMODYNAMICS: LVEDP 14 mmHg. No significant pressure gradient on pullback across the aortic valve CORONARY ANGIOGRAPHY: Cor calcium present Left main coronary artery: 30-40% ostial and proximal stenosis Left anterior descending coronary artery: Diffuse, mild to mod plaque Left circumflex coronary artery: Codominant, without significant disease Right coronary artery: Codominant, without significant disease LV Angio CALVO projection only. No wall motion abnormality. LVEF approx 60% IVUS of Left Main: 6F sheath and 6F JL4 guide 5,000 iv heparin BMW wire placed through LMCA into LCX [facility] IVUS LMCA area 8.3 sq cm at its narrowest point IMPRESSION: 1. LMCA 30-40% on angio and LMCA area by IVUS 8.3 sq cm at its narrowest point 2. Mild to mod, diffuse disease of LAD 3. RCA and LCx codominant and without significant disease 4. LVEDP 14 mmHg 5. LVEF approx 65% DOT PEREZ MD [facility] Oct 18, 2023 10:29
== END 2023-10-18 15:15 | disposition home or self-care (01) ==
LOC: CATH 06:41 → SDC 10:23 → CATH 15:15
PROVIDERS: ATTEND Internal Medicine Cardiovascular Disease
DX: I25.10 Atherosclerotic heart disease of native coronary artery without angina pectoris (principal); E66.9 Obesity, unspecified; I49.5 Sick sinus syndrome; I65.23 Occlusion and stenosis of bilateral carotid arteries; I48.0 Paroxysmal atrial fibrillation; R94.39 Abnormal result of other cardiovascular function study; I10 Essential (primary) hypertension; F17.210 Nicotine dependence, cigarettes, uncomplicated; Z86.73 Personal history of transient ischemic attack (TIA), and cerebral infarction without residual deficits; Z79.01 Long term (current) use of anticoagulants
CPT/HCPCS: 80053; 80061; 85027; 85610; 85730; 87081; 92978; 93005; 93458; C1753; C1760; C1769; C1887; C1894 ×2; 36415